=== PATIENT | male | born 1970 | race Caucasian/White ===

== ENCOUNTER 2017-02-07 20:27 | Emergency (ER) | payer OTHER ==
[~2017-02-07] VITALS: Ht 182.9 cm; Wt 149.7 kg
[~2017-02-07 20:27] MED LIST: AMOXIL500 MG PO; BACTRIM DS 8001 TAB PO; LASIX PO; PERCOCET 325 MG1 TA2 PO; PERCOCET 5-3251 EACH PO; PREDNISONE 20MG20 MG PO; Symbicort INH; VENTOLIN H0.09 MG/Ac INH; ZESTRIL10 M1 PO; ZITHROMAX Z-PA250 M1 PO; [UNRECOGNIZED DRUG - CODE] SC
--- NOTE | 2017-02-07 21:01 | ED GI/GU/ABDOMINAL COMPLAINT ---
History of Present Illness General Chief Complaint: Abdominal Pain/Flank Pain Stated Complaint: ABD PAIN Source: patient, old records Exam Limitations: no limitations Vital Signs & Intake/Output Vital Signs & Intake/Output Vital Signs Date Time Temp Pulse Resp B/P Pulse O2 O2 Flow FiO2 Ox Delivery Rate 02/07 2305 98.0 80 18 138/68 93 Room Air 02/07 2100 Room Air 02/07 2030 97.0 89 18 152/88 95 Room Air Allergies Coded Allergies: NO KNOWN ALLERGIES (02/12/16) Reconcile Medications Ciprofloxacin HCl 500 MG TABLET 1 TAB PO BID ANTIBIOTIC (Reported) Glipizide (Glipizide ER) 10 MG TAB.ER.24 1 TAB PO DAILY DM (Reported) Insulin NPL/Insulin Lispro (Humalog Mix 75-25 Vial) 100 UNIT/ML (75-25) VIAL 70 UNIT SC BID DM (Reported) Lisinopril (Zestril) 10 MG TABLET 1 TAB PO DAILY HTN Oxycodone HCl/Acetaminophen (Oxycodone-Acetaminophen 10-325) 10 MG-325 MG TABLET 1 TAB PO PRN PAIN (Reported) Oxycodone HCl/Acetaminophen (Percocet 5-325 MG Tablet) 5 MG-325 MG TABLET 1-2 TAB PO Q6P PRN PAIN Triage Note: PT TO TRIAGE WITH C/O R SIDED ABD PAIN 5/10. PT WAS DIAGNOSED WITH DIVERTICULITIS ON 02/04 AND WAS ON CIPRO SINCE. +NAUSEA/-VOMITING/-DIARRHEA. VSS. Triage Nurses Notes Reviewed? yes HPI: Patient presents with sharp stabbing right upper quadrant pain that radiates through to his back that started approximately 1 week ago. Patient was seen by his primary care physician and was told that he has diverticulitis and was prescribed Cipro. Patient has been taking the antibiotics without any relief. The pain is constant. There is no aggravating or mitigating factors. The pain is 8 out of 10. There is no nausea or vomiting. There are no fevers or chills. Past History Travel History Traveled to [place] past 21 day No Medical History Any Pertinent Medical History? see below for history EENT: TONSILS REMOVED - PEDIATR Cardiovascular: hypertension Respiratory: asthma, bronchitis, pneumonia Gastrointestinal: diverticulitis Renal: nephrolithiasis Musculoskeletal: FRACTURES (FINGERS) Endocrine: diabetes Other Medical Hx: Edema History of MRSA: No History of VRE: No History of CDIFF: No Surgical History Surgical History: non-contributory Psychosocial History Who do you live with Family Services at Home None What is your primary language Luxembourgish Tobacco Use: Current Daily Use Daily Tobacco Use Amount/Type: => 5 Cigarettes daily ETOH Use: occasional use Illicit Drug Use: denies illicit drug use Family History Family History, If Any: FATHER FH: diabetes mellitus MOTHER Hx Contributory? No Review of Systems Review of Systems Constitutional: Reports: no symptoms. EENTM: Reports: no symptoms. Respiratory: Reports: no symptoms. Cardiovascular: Reports: no symptoms. GI: Reports: see HPI, abdominal pain. Genitourinary: Reports: no symptoms. Musculoskeletal: Reports: no symptoms. Skin: Reports: no symptoms. Neurological/Psychological: Reports: no symptoms. Hematologic/Endocrine: Reports: no symptoms. Immunologic/Allergic: Reports: no symptoms. All Other Systems: Reviewed and Negative Physical Exam Physical Exam General Appearance: well developed/nourished, alert, awake, moderate distress Head: atraumatic, normal appearance Eyes: Bilateral: PERRL, EOMI, other (ANICTERIC). Ears, Nose, Throat, Mouth: hearing grossly normal, moist mucous membrane Neck: normal inspection, supple, full range of motion Respiratory: normal breath sounds, chest non-tender, no respiratory distress, lungs clear Cardiovascular: regular rate/rhythm, normal peripheral pulses Gastrointestinal: normal bowel sounds, soft, no organomegaly, tenderness, mass ( RUQ) Back: normal inspection, normal range of motion, NO CVA TENDERNESS Extremities: normal range of motion Neurologic/Psych: no motor/sensory deficits, awake, alert, oriented x 3, normal gait, normal mood/affect Skin: intact, normal color, warm/dry Core Measures ACS in differential dx? No Severe Sepsis Present: No Septic Shock Present: No Progress Differential Diagnosis: biliary colic, cholecystitis, diverticulitis, gastritis, hepatitis, ischemic bowel, inflamm bowel dis, pancreatitis Plan of Care: Orders Procedure Date/time Status URINALYSIS 02/07 2100 Complete LIPASE 02/07 2100 Complete COMPREHENSIVE METABOLIC PANEL 02/07 2100 Complete CBC WITHOUT DIFFERENTIAL 02/07 2100 Complete AMYLASE 02/07 2100 Complete Laboratory Tests 02/07/179: Urinalysis LIGHT H, Urine Color YEL, Urine Clarity CLDY H, Urine pH 6.0, Ur Specific [place] 1.025, Urine Protein 100 H, Urine Ketones NEG, Urine Nitrite NEG, Urine Bilirubin NEG, Urine Urobilinogen 1.0, Ur Leukocyte Esterase NEG, Ur Microscopic SEDIMENT EXAMINED, Urine RBC 1-3, Urine WBC RARE, Ur Epithelial Cells RARE, Urine Bacteria RARE H, Urine Mucus FEW, Urine Hemoglobin SMALL H, Urine Glucose >=1000 H 02/07/172118: Anion Gap 10, Estimated GFR > 60, BUN/Creatinine Ratio 20.0, Glucose 325 H, Calcium 9.2, Total Bilirubin 1.3, AST 81 H, ALT 175 H, Alkaline Phosphatase 215 H, Total Protein 7.0, Albumin 3.8, Globulin 3.2, Albumin/Globulin Ratio 1.2 , Amylase 159 H, Lipase 2578 H, CBC w Diff NO MAN DIFF REQ, RBC 5.41, MCV 86.0 , MCH 28.2, RDW 14.2, MPV 7.8, Gran % 78.7 H, Lymphocytes % 12.9 L, Monocytes % 5.5, Eosinophils % 2.6, Basophils % 0.3, Absolute Granulocytes 9.5 H, Absolute Lymphocytes 1.6, Absolute Monocytes 0.7 H, Absolute Eosinophils 0.3, Absolute Basophils 0, PUBS MCHC 32.7 L Diagnostic Imaging: Viewed by Me: CT Scan. Discussed w/RAD: CT Scan. Radiology Impression: PATIENT: NETO MERCEDES PRESENT AGE: 47 PATIENT ACCOUNT NO: [id number] : 69 LOCATION: [facility] ORDERING PHYSICIAN: RADHA FAJARDO MD SERVICE DATE: 02/07/17 EXAM TYPE: CAT - CT ABD & PELVIS W IV CONTRAST EXAMINATION: CT ABDOMEN AND PELVIS WITH CONTRAST CLINICAL INFORMATION: 47-year-old male patient with right upper quadrant pain. COMPARISON: CT of the abdomen and pelvis on 08/08/2013. TECHNIQUE : Multidetector volumetric imaging was performed of the abdomen and pelvis before and after the IV administration of 95 mL of Optiray 320 intravenous contrast. Sagittal and coronal reformatted images were obtained on the technologist's workstation. DLP: 1459 mGy-cm FINDINGS: Sales Receptionist film is noncontributory. LUNG BASES: The visualized lung bases are unremarkable. LIVER, GALLBLADDER, AND BILIARY TREE: The liver is normal in size, shape, and attenuation. No focal hepatic lesion or biliary ductal dilatation is present. The gallbladder is unremarkable with no evidence of radiopaque gallstones, gallbladder wall thickening, or obvious pericholecystic inflammatory changes. PANCREAS: Unremarkable. SPLEEN: Unremarkable. ADRENAL GLANDS: Unremarkable. KIDNEYS AND URETERS: The left kidney shows cortical atrophy and overall is smaller than the right kidney. Neither kidney shows evidence of significant hydronephrosis. There is perinephric stranding left greater than right. Two punctate, showing calculi are seen in the lower pole of the left kidney. BLADDER : The bladder is only partially filled. There does appear to be some mild wall thickening of the bladder. GASTROINTESTINAL TRACT: The small and large bowel are unremarkable. The appendix is unremarkable. ABDOMINAL WALL: Is small fat- containing umbilical hernia is present. Series 601, image 91. LYMPH NODES: Normal. VASCULAR: Unremarkable. PELVIC VISCERA: Unremarkable. OSSEOUS STRUCTURES : The 12th ribs are hypoplastic. There is an unusual configuration at L5-S1 with near complete anterolisthesis of L5 and bony bridging to S1 IMPRESSION: 1. No indication of acute cholecystitis. 2. Mild cortical atrophy of the left kidney with 2 punctate nonobstructing stones. 3. Unusual appearance to the lumbosacral junction with appears to be severe anterolisthesis and bony bridging of L5-S1. This is a chronic finding. DICTATED BY: AUGUSTO RDZ MD DATE/TIME DICTATED: 02/07/172225 STRAIGHTENER GUN PARTS:GENEVIEVE DATE/TIME TRANSCRIBED:02/07/172225 CONFIDENTIAL, DO NOT COPY WITHOUT APPROPRIATE AUTHORIZATION. <Electronically signed in Other Vendor System> SIGNED BY: AUGUSTO RDZ MD 02/07/17 2846 Initial ED EKG: none Departure Departure Disposition: HOME OR SELF CARE Condition: Stable Clinical Impression Primary Impression: Upper abdominal pain, unspecified Secondary Impressions: Elevated LFTs Referrals: NEFTALI BEDOLLA,VIRY Shepard (PCP/Family) Additional Instructions: HAVE ULTRASOUND TOMORROW RETURN IF SYMPTOMS WORSEN OR FOR ANY CONCERNS Departure Forms: Customer Survey General Discharge Information Prescriptions: Current Visit Scripts Oxycodone HCl/Acetaminophen (Percocet 5-325 MG Tablet) 1-2 TAB PO Q6P PRN PAIN #20 TAB
[2017-02-07 21:48] LABS: ABSOLUTE BASOPHIL COUNT 0 /CUMM (0.0-0.2); ABSOLUTE EOSINOPHIL COUNT 0.3 /CUMM (0.0-0.7); ABSOLUTE GRANULOCYTE CT 9.5 /CUMM (1.4-6.5); ABSOLUTE LYMPH COUNT 1.6 /CUMM (1.2-3.4); ABSOLUTE MONOCYTE COUNT 0.7 /CUMM (0.10-0.60); BASOPHIL % 0.3 % (0.0-2.0); EOSINOPHIL % 2.6 % (0-5); GRANULOCYTE % 78.7 % (42.2-75.2); HEMATOCRIT 46.5 % (42-52); MEAN CORPUSCULAR HGB 28.2 PG (27.0-31.0); MEAN CORPUSCULAR HGB CONC 32.7 G/DL (33.0-37.0); MEAN PLATELET VOLUME 7.8 FL (7.4-10.4); PLATELET COUNT 233 /CUMM (130-400); RBC DISTRIBUTION WIDTH 14.2 % (11.5-14.5); RED BLOOD CELL CT 5.41 /CUMM (4.70-6.10); WHITE BLOOD CELL COUNT 12.1 /CUMM (4.8-10.8)
[2017-02-07] MEDS ORDERED: GLIPIZIDE ER10 M1 PO (21:51)
[2017-02-07] MEDS ORDERED: CIPROFLOXACIN500 M2 PO (21:51)
[2017-02-07] MEDS ORDERED: OXYCODONE-ACET1 EAC1 PO (21:53)
[2017-02-07] MEDS ORDERED: HUMALOG MI100 UNIT/1 SC (21:54)
--- NOTE | 2017-02-07 22:47 | CT SCAN REPORT ---
EXAMINATION: CT ABDOMEN AND PELVIS WITH CONTRAST CLINICAL INFORMATION: 47-year-old male patient with right upper quadrant pain. COMPARISON: CT of the abdomen and pelvis on 08/08/2013. TECHNIQUE: Multidetector volumetric imaging was performed of the abdomen and pelvis before and after the IV administration of 95 mL of Optiray 320 intravenous contrast. Sagittal and coronal reformatted images were obtained on the technologist's workstation. DLP: 1459 mGy-cm FINDINGS: Gray Tender film is noncontributory. LUNG BASES: The visualized lung bases are unremarkable. LIVER, GALLBLADDER, AND BILIARY TREE: The liver is normal in size, shape, and attenuation. No focal hepatic lesion or biliary ductal dilatation is present. The gallbladder is unremarkable with no evidence of radiopaque gallstones, gallbladder wall thickening, or obvious pericholecystic inflammatory changes. PANCREAS: Unremarkable. SPLEEN: Unremarkable. ADRENAL GLANDS: Unremarkable. KIDNEYS AND URETERS: The left kidney shows cortical atrophy and overall is smaller than the right kidney. Neither kidney shows evidence of significant hydronephrosis. There is perinephric stranding left greater than right. Two punctate, showing calculi are seen in the lower pole of the left kidney. BLADDER: The bladder is only partially filled. There does appear to be some mild wall thickening of the bladder. GASTROINTESTINAL TRACT: The small and large bowel are unremarkable. The appendix is unremarkable. ABDOMINAL WALL: Is small fat-containing umbilical hernia is present. Series 601, image 91. LYMPH NODES: Normal. VASCULAR: Unremarkable. PELVIC VISCERA: Unremarkable. OSSEOUS STRUCTURES: The 12th ribs are hypoplastic. There is an unusual configuration at L5-S1 with near complete anterolisthesis of L5 and bony bridging to S1 IMPRESSION: 1. No indication of acute cholecystitis. 2. Mild cortical atrophy of the left kidney with 2 punctate nonobstructing stones. 3. Unusual appearance to the lumbosacral junction with appears to be severe anterolisthesis and bony bridging of L5-S1. This is a chronic finding.
[2017-02-07] MEDS ORDERED: PERCOCET 5-3251 EACH PO (23:04)
[2017-02-07 23:05] VITALS: BP 138/68
== END 2017-02-07 23:08 ==
LOC: ERH 20:27
PROVIDERS: Emergency Medicine
DX: R10.11 Right upper quadrant pain (principal); R79.89 Other specified abnormal findings of blood chemistry
CPT/HCPCS: 74177; 81001; 96361; 96374; 96375

== ENCOUNTER → 2017-12-15 | Day surgery (SDC) | payer OTHER ==
[~2017-12-15] VITALS: Ht 182.9 cm; Wt 145.1 kg
[~2017-12-15] MED LIST changes: +CIPROFLOXACIN500 M2 PO; +GLIPIZIDE ER10 M1 PO; +HUMALOG MI100 UNIT/1 SC; +OXYCODONE-ACET1 EAC1 PO
--- NOTE | 2017-12-15 15:41 | Operative Report ---
Operative/Inv Procedure Report Surgery Date: 12/15/17 Name of Procedure: Right knee arthroscopy, partial medial meniscectomy, partial lateral meniscectomy, loose body removal, chondroplasty Pre-Operative Diagnosis: Right knee medial meniscus tear Post-Operative Diagnosis: Right knee medial meniscus tear plus early degenerative joint disease Estimated Blood Loss: scant Surgeon/Marketing Content Coordinator: Aditya Junior MD Anesthesia: laryngeal mask airway Complications: None Condition: Stable to PACU Operative Indication: This is a 47-year-old male who injured his right knee stepping off a balance. MRI showed meniscal tearing. Risks and benefits of the procedure were discussed with the patient at length. Risks include but are not limited to nerve damage, muscle damage, infection, blood loss, blood clots, pulmonary embolus, and even . The patient agreed to the above risks and elected to proceed with surgery. Operative/Procedure Note Note: The patient was placed supine on the operating room table. A tourniquet was applied. The lower extremity prepped and draped in normal sterile fashion. A timeout was performed before the incision. The site marking was visualized before incision. After the leg was prepped and draped, an Esmarch was used to exsanguinate the extremity. The tourniquet was inflated. A standard inferolateral portal was established with an 11 blade. The camera was inserted. A medial portal was established with a spinal needle and an 11 blade. The diagnostic arthroscopy was then performed which showed the above findings. A straight biter was used to debride the posterior horn of the medial meniscus back to a stable rim of cartilage. A shaver was then used to complete the debridement. The shaver was then used to perform a chondroplasty of the medial femoral condyle. A loose body was noted in the lateral compartment just anterior to the posterior horn of the lateral meniscus. This was retrieved with a grasper. The lateral compartment was entered and a shaver was used to debride degenerative tearing of the free edge of the posterior horn the lateral meniscus. The shaver was then used to perform a chondroplasty on the undersurface of the patella as well as trochlea. The knee was copiously irrigated. The portal sites were closed with 3-0 nylon suture in a simple interrupted fashion. The knee was injected with 10 mL of 0.25% Marcaine with epinephrine. A dry sterile dressing was applied and the patient was transferred to PACU in stable condition. Findings: Degenerative tear of the posterior horn the medial meniscus. Large area of grade 4 chondral defect over the medial femoral condyle. Medial tibial plateau with grade 1 chondral softening. ACL with mucinous stimulation. PCL intact. Lateral meniscus with degenerative fraying of the posterior horn. Lateral compartment articular cartilage with grade 1 chondral changes of the femoral condyle and tibial plateau. Grade 3 and 4 chondral changes of the trochlea. Grade 3 chondral changes on the undersurface of the patella.
== END ==
LOC: STS 02:17
DX: S83.231A Complex tear of medial meniscus, current injury, right knee, initial encounter (principal); S83.281A Other tear of lateral meniscus, current injury, right knee, initial encounter; X58.XXXA Exposure to other specified factors, initial encounter; E11.9 Type 2 diabetes mellitus without complications; Z79.4 Long term (current) use of insulin; I73.9 Peripheral vascular disease, unspecified; I10 Essential (primary) hypertension; G47.33 Obstructive sleep apnea (adult) (pediatric); F17.210 Nicotine dependence, cigarettes, uncomplicated; Z68.41 Body mass index [BMI] 40.0-44.9, adult
CPT/HCPCS: J0131; J0690; J2250

== ENCOUNTER 2018-03-09 22:26 | Inpatient (IN) | payer OTHER ==
[~2018-03-09] VITALS: Ht 185.4 cm; Wt 155.2 kg
--- NOTE | 2018-03-09 22:45 | ED AMS/SEIZURE/WEAK/DIZZY ---
History of Present Illness General Chief Complaint: Neck/Upper Back Pain/Injury Stated Complaint: SHIVERING, +N/V Source: patient Exam Limitations: no limitations Vital Signs & Intake/Output Vital Signs & Intake/Output Vital Signs Date Time Temp Pulse Resp B/P B/P Pulse O2 O2 Flow FiO2 Mean Ox Delivery Rate 03/10 0351 99.0 101 20 128/70 94 Nasal 2.0L Cannula 03/10 0231 98.7 110 24 114/76 92 Nasal 2.0L Cannula 03/09 2316 93 Room Air 03/09 2232 101.2 122 22 191/126 98 Room Air ED Intake and Output 03/10 0000 03/09 1200 Intake Total 1000 Output Total Balance 1000 Intake, IV 1000 Allergies Coded Allergies: NO KNOWN ALLERGIES (02/12/16) Reconcile Medications Furosemide 40 MG TABLET 1 TAB PO BID DIURETIC (Reported) Glipizide (Glipizide ER) 10 MG TAB.ER.24 1 TAB PO DAILY DM (Reported) Insulin NPL/Insulin Lispro (Humalog Mix 75-25 Vial) 100 UNIT/ML (75-25) VIAL 70 UNIT SC BID DM (Reported) Lisinopril (Zestril) 10 MG TABLET 1 TAB PO DAILY HTN Oxycodone HCl/Acetaminophen (Oxycodone-Acetaminophen 10-325) 10 MG-325 MG TABLET 1 TAB PO AD PRN PAIN (Reported) Potassium Chloride 20 MEQ TAB.ER.PRT 1 TAB PO BID SUPPLEMENT (Reported) Triage Note: PT BIBA TO TRIAGE S/P STARTING LASIX YESTERDAY 80MG FOR PEDAL EDEMA AND THEN TONIGHT DEVELOPED ACUTE ONSET SHIVERING, N/V. PT HYPERTENSIVE IN TRIAGE (REPORTS DID NOT TAKE MEDICATION TODAY) 191/126 AND FEBRILE 101.2. MD ABBASI IN TRIAGE TO AL. Triage Nurses Notes Reviewed? yes Onset: Gradual Duration: day(s): Timing: recent history Injury Environment: work Severity: moderate, severe Modifying Factors: Improves With: rest. Associated Symptoms: cough, orthopnea, rigors HPI: 48 yo gentleman in prior good health presents with chills, body aches, shivering, started this evening. He notes that he started taking lasix yesterday and took his full complement today (am and pm). He notes that tonight he had a fever, had worse dyspnea, chills, cough. He notes over the past several days, he has had worsening orthopnea and swelling of his lower extremities. He vomited once, but is not presently nauseous. Per his colleagues, "All of a sudden he started shaking... and then he got real pale." He has no dysuria, diarrhea, dizziness. Past History Travel History Traveled to [place] past 21 day No Medical History Any Pertinent Medical History? see below for history Neurological: NONE EENT: TONSILS REMOVED - PEDIATR Cardiovascular: hypertension Respiratory: asthma, bronchitis, pneumonia Gastrointestinal: diverticulitis Hepatic: NONE Renal: nephrolithiasis Musculoskeletal: FRACTURES (FINGERS) Psychiatric: NONE Endocrine: diabetes Blood Disorders: NONE Cancer(s): NONE Other Medical Hx: Edema History of MRSA: No History of VRE: No History of CDIFF: No Surgical History Surgical History: non-contributory Psychosocial History Who do you live with Family Services at Home None What is your primary language Macedonian Tobacco Use: Never used Family History Family History, If Any: FATHER FH: diabetes mellitus MOTHER Hx Contributory? No Review of Systems Review of Systems Constitutional: Reports: no symptoms. EENTM: Reports: no symptoms. Respiratory: Reports: no symptoms. Cardiovascular: Reports: no symptoms. GI: Reports: no symptoms. Genitourinary: Reports: no symptoms. Musculoskeletal: Reports: no symptoms. Skin: Reports: no symptoms. Neurological/Psychological: Reports: no symptoms. Hematologic/Endocrine: Reports: no symptoms. Immunologic/Allergic: Reports: no symptoms. All Other Systems: Reviewed and Negative Physical Exam Physical Exam General Appearance: well developed/nourished, moderate distress Head: atraumatic, normal appearance Eyes: Bilateral: normal appearance. Ears, Nose, Throat: normal pharynx, normal ENT inspection Neck: normal inspection, supple, full range of motion Respiratory: diminished breath sounds at bases Cardiovascular: regular rate/rhythm Gastrointestinal: normal bowel sounds, soft, non-tender, no organomegaly Back: normal inspection, normal range of motion Extremities: 4+ pitting edema, symmetrical w/ venous stasis changes Neurologic/Psych: no motor/sensory deficits, awake, alert, oriented x 3 Skin: intact, normal color, warm/dry Core Measures ACS in differential dx? No CVA/TIA Diagnosis No Sepsis Present: No Sepsis Focused Exam Completed? No Progress Differential Diagnosis: pneumonia vs chf vs other. Plan of Care: Orders Procedure Date/time Status TROPONIN LEVEL 03/11 0600 Active EKG 03/11 0600 Active Consistent Carbohydrate 3 03/10 B Active CBC WITHOUT DIFFERENTIAL 03/10 0600 Active BASIC ELECTROLYTES PLUS BUN&CR 03/10 0600 Active ECHOCARDIOGRAM 03/10 0404 Active STREP PNEUMO URINARY ANTIGEN 03/10 0401 Active LEGIONELLA URINARY ANTIGEN 03/10 0401 Active Saline Lock 03/10 0355 Active Pathway - chart 03/10 0355 Active House Staff 03/10 0355 Active Code Status 03/10 0355 Active Weight 03/10 0351 Active Vital Signs 03/10 0351 Active Teach/Educate 03/10 0351 Active Pain Treatment and Response 03/10 0351 Active Nutritional Intake, Monitor 03/10 0351 Active Isolation 03/10 0351 Active Intake & Output 03/10 0351 Active Patient Care Conference 03/10 0351 Active Activity/Ambulation 03/10 0351 Active Patient Data 03/10 0149 Active Saline Lock 03/10 0118 Active Misc Message 03/10 0118 Active ED Holding Orders 03/10 0118 Active Admit to inpatient 03/10 0118 Active Vital Signs 03/10 0118 Active Code Status 03/10 0118 Complete URINALYSIS 03/10 0117 Complete Add-on Test (ER Only) 03/10 0102 Active RAPID VIRAL INFLUENZA A 03/10 0050 Complete Lab Add-on Test 03/10 UNK Active VTE Mechanical Prophylaxis 03/10 UNK Active Vital Signs 03/10 UNK Active EKG 03/09 2355 Active BLOOD CULTURE 03/09 2335 Active BLOOD CULTURE 03/09 2329 Active Intake & Output 03/09 2318 Active B-TYPE NATRIURETIC PEP (BNP) 03/09 2311 Complete TROPONIN LEVEL 03/09 2244 Complete LIPASE 03/09 2244 Complete HEPATIC FUNCTION PANEL 03/09 2244 Complete D-DIMER 03/09 2244 Complete CBC WITHOUT DIFFERENTIAL 03/09 2244 Complete BASIC METABOLIC PANEL 03/09 2244 Complete AMYLASE 03/09 224 Complete EKG 03/09 2229 Active Current Medications Sig/Sarabjit Start time Last Medication Dose Stop Time Status Admin Azithromycin 500 MG DAILY 03/10 0900 UNVr (Zithromax) Sodium Chloride 250 ML (Normal Saline 0.9%) Insulin Detemir 70 UNITS BID 03/10 0900 UNVr (Levemir) Insulin Aspart 0 TIDAC 03/10 0800 UNVr (NovoLOG) Acetaminophen 650 MG Q6 03/10 0600 UNVr (Tylenol) Heparin Sodium 5,000 UNIT Q8 03/10 06 UNVr (Porcine) Acetaminophen 1,000 MG Q6P PRN 03/10 400 UNVr (Ofirmev) Laboratory Tests 03/10/18 0330: Urine Color YEL, Urine Clarity HAZY H, Urine pH 6.0, Ur Specific [place] 1.010, Urine Protein 30 H, Urine Ketones NEG, Urine Nitrite NEG, Urine Bilirubin NEG, Urine Urobilinogen 0.2, Ur Leukocyte Esterase SMALL H, Ur Microscopic SEDIMENT EXAMINED, Urine RBC 5-10 H, Urine WBC 10-15 H, Ur Epithelial Cells RARE, Urine Crystals RARE UR AC, Urine Bacteria RARE H, Urine Hemoglobin SMALL H, Urine Glucose 100 H 03/09/18 2311: Anion Gap 17 H, Estimated GFR > 60, BUN/Creatinine Ratio 21.0, Glucose 330 H, Calcium 9.4, Total Bilirubin 1.5 H, Direct Bilirubin 0.4, AST 17, ALT 31, Alkaline Phosphatase 71, Troponin I 0.02, Uey-O-Levetdxkkcy Pept 146 H, Total Protein 7.5, Albumin 4.3, Amylase 39, Lipase 131, D-Dimer High Sensitivty 253 H , CBC w Diff NO MAN DIFF REQ, RBC 5.09, MCV 87.1, MCH 29.2, MCHC 33.5, RDW 14.3, MPV 7.1 L, Gran % 90.3 H, Lymphocytes % 5.8 L, Monocytes % 2.4, Eosinophils % 1.5, Basophils % 0, Absolute Granulocytes 14.3 H, Absolute Lymphocytes 0.9 L, Absolute Monocytes 0.4, Absolute Eosinophils 0.2, Absolute Basophils 0 Microbiology 03/10 401 URINE ROUT: Legionella Antigen - ORD 03/10 401 URINE ROUT: Streptococcus pneumoniae Antigen (M - ORD 03/10 0250 NASOPHARYN: Influenza Virus A & B Rapid Smear - COMP 03/094 BLOOD: Blood Culture - RECD 03/09 2332 BLOOD: Blood Culture - RECD Diagnostic Imaging: Viewed by Me: Radiology Read. Discussed w/RAD: Radiology Read. CXR Impression: PATIENT: NETO MERCEDES PRESENT AGE: 48 PATIENT ACCOUNT NO: [id number] : 69 LOCATION: [facility] ORDERING PHYSICIAN: Candido Abbasi MD SERVICE DATE: 03/09/18 EXAM TYPE: RAD - XRY-PORTABLE CHEST XRAY EXAMINATION: XR PORTABLE CHEST CLINICAL INFORMATION: Dyspnea COMPARISON: 02/11/2016 TECHNIQUE: Portable frontal view of the chest was obtained. FINDINGS: Lung volumes are symmetric. No focal consolidation is seen. There is mild diffuse prominence of the interstitium. No evidence of pneumothorax or significant pleural effusion. The cardiomediastinal contour is unremarkable. No acute osseous findings are seen. IMPRESSION: Mild diffuse interstitial prominence, which could reflect mild interstitial edema. No focal consolidation identified. DICTATED BY: Slade Mcgowan MD DATE/TIME DICTATED:03/09/182331 MECHANICAL TEST TECHNICIAN:GENEVIEVE DATE/TIME TRANSCRIBED:2331 CONFIDENTIAL, DO NOT COPY WITHOUT APPROPRIATE AUTHORIZATION. < Electronically signed in Other Vendor System> SIGNED BY: Slade Mcgowan MD 03/09/182337 Initial ED EKG: sinus tach, rbbb. no acute changes. Departure Departure Disposition: HOME OR SELF CARE Condition: Stable Clinical Impression Primary Impression: CHF (congestive heart failure) Secondary Impressions: Pneumonia, Sepsis Referrals: Andie BEDOLLA,Bello Shepard (PCP/Family) Departure Forms: Customer Survey General Discharge Information Admission Note Spoke With: Cam Tillman MD Documentation of Exam: Documentation of any treatments & extenuating circumstances including Concerns Regarding Discharge (functional status, medication knowledge or non-compliance, living conditions, etc.) that warrant an admission rather than observation: Pt with new onset chf as well as clinical pneumonia (fever, wbc, dyspnea).. pt merits iv abx, iv lasix, close evaluation, serial trops/ekg, cards eval. call placed to cardiology. Critical Care Note Critical Care Note Critical Care Time: 30-74 min
[2018-03-09 23:19] LABS: ABSOLUTE BASOPHIL COUNT 0 /CUMM (0.0-0.2); ABSOLUTE EOSINOPHIL COUNT 0.2 /CUMM (0.0-0.7); ABSOLUTE GRANULOCYTE CT 14.3 /CUMM (1.4-6.5); ABSOLUTE LYMPH COUNT 0.9 /CUMM (1.2-3.4); ABSOLUTE MONOCYTE COUNT 0.4 /CUMM (0.10-0.60); BASOPHIL % 0 % (0.0-2.0); EOSINOPHIL % 1.5 % (0-5); GRANULOCYTE % 90.3 % (42.2-75.2); HEMATOCRIT 44.3 % (42-52); MEAN CORPUSCULAR HGB 29.2 PG (27.0-31.0); MEAN CORPUSCULAR HGB CONC 33.5 G/DL (33.0-37.0); MEAN CORPUSCULAR VOLUME 87.1 FL (80.0-94.0); MEAN PLATELET VOLUME 7.1 FL (7.4-10.4); PLATELET COUNT 236 /CUMM (130-400); RBC DISTRIBUTION WIDTH 14.3 % (11.5-14.5); RED BLOOD CELL CT 5.09 /CUMM (4.70-6.10); WHITE BLOOD CELL COUNT 15.8 /CUMM (4.8-10.8)
[2018-03-09] MEDS ORDERED: FUROSEMIDE40 M1 PO (23:28)
[2018-03-09] MEDS ORDERED: POTASSIUM CHLO20 ME2 PO (23:28)
[2018-03-09] MEDS ORDERED: OXYCODONE-ACET1 EAC1 PO (23:29)
--- NOTE | 2018-03-09 23:38 | RADIOLOGY REPORT ---
EXAMINATION: XR PORTABLE CHEST CLINICAL INFORMATION: Dyspnea COMPARISON: 02/11/2016 TECHNIQUE: Portable frontal view of the chest was obtained. FINDINGS: Lung volumes are symmetric. No focal consolidation is seen. There is mild diffuse prominence of the interstitium. No evidence of pneumothorax or significant pleural effusion. The cardiomediastinal contour is unremarkable. No acute osseous findings are seen. IMPRESSION: Mild diffuse interstitial prominence, which could reflect mild interstitial edema. No focal consolidation identified.
--- NOTE | 2018-03-10 02:32 | CT SCAN REPORT ---
EXAMINATION: CT ANGIOGRAM OF THE CHEST WITH AND WITHOUT CONTRAST (CT PULMONARY ANGIOGRAM FOR PE) CLINICAL INFORMATION: Dyspnea COMPARISON: Chest CT 05/21/2014 TECHNIQUE: Prior to contrast administration, noncontrast localization images were obtained. Subsequently, multidetector volumetric imaging was performed from the thoracic inlet to below the diaphragms following the administration of 91 mL Optiray 320 intravenous contrast. No contrast reaction reported. Sagittal, coronal, and MIP oblique sagittal reformatted images were obtained on the CT workstation, uploaded to PACS, and reviewed. Total exam dose-length product 601.49 mGy-cm. FINDINGS: QUALITY OF STUDY/CONTRAST BOLUS: Satisfactory PULMONARY ARTERIES: No main pulmonary artery embolus is seen. However, the lobar, segmental, and subsegmental vessels are not adequately assessed due to suboptimal bolus timing, and therefore emboli at these levels cannot be excluded. The main pulmonary artery is prominent, measuring approximately 3.4 cm in diameter, which may indicate pulmonary hypertension. THORACIC AORTA: No aneurysm or dissection. LUNG: The lungs are clear bilaterally without consolidation. No appreciable findings of pulmonary edema. PLEURA: No pleural effusion or pneumothorax. MEDIASTINUM: The visualized thyroid gland is unremarkable. There are subcentimeter mediastinal lymph nodes within the range of normal variation. Cardiac size is within normal limits; no pericardial effusion. No evidence of septal bowing or right heart strain. CHEST WALL/AXILLA: No axillary or internal mammary lymphadenopathy. OSSEOUS STRUCTURES: Multilevel endplate osteophytes are present in the spine. UPPER ABDOMEN: No acute findings identified. No reflux of contrast into the hepatic veins to suggest elevated right heart pressures. IMPRESSION: 1. Limited assessment due to suboptimal bolus timing. While no main pulmonary artery embolus is seen, assessment of the remainder of the vasculature is inadequate, and emboli at these levels cannot be excluded. Further assessment may be performed with a nuclear medicine ventilation perfusion scan, or with reattempted CT angiogram. 2. Prominent main pulmonary artery, which may reflect pulmonary hypertension. VTE: indeterminate
--- NOTE | 2018-03-10 03:36 | History & Physical ---
Ike BEDOLLA,Zaki 03/10/18 0335: General Information and HPI History of Present Illness: Patient is a morbidly obese 48-year-old male with past medical history of diabetes, obstructive sleep apnea (with intermittent use of CPAP), hypertension, asthma, diverticulitis presenting this admission with chief complaint of acute onset shivering and nausea/vomiting. Patient reports that on day of admission at approximately 8 PM he was sitting at work and started shivering uncontrollably. On his way to the hospital patient reports that he had nausea and vomiting. Patient reports fever, sweating, lightheadedness, shortness of breath for the past few days with exertion and at rest. Patient reports he started having increased lower extremity swelling and was placed on Lasix 40 mg twice a day which he reports has helped the swelling however has been feeling lightheaded since starting the medication. Of note patient has a small wound on his left leg which has a small amount of discharge. Patient endorses productive cough with clear sputum. Reports that he was treated for bronchitis 2-3 weeks prior to admission with inhaler and antibiotics. Patient denies any chest pain, palpitations, dysuria, hematuria, abdominal pain, diarrhea, constipation. Patient reports smoking 10 cigarettes per day for the past 30 years, denies illicit drug use, drinks alcohol once a month. Patient lives with his and kids and has a pet cat and dog. Patient denies any sick contacts, recent travel outside of [place], bug bites or tick bites. Allergies/Medications Allergies: Coded Allergies: NO KNOWN ALLERGIES (02/12/16) Home Med list Furosemide 40 MG TABLET 1 TAB PO BID DIURETIC (Reported) Glipizide (Glipizide ER) 10 MG TAB.ER.24 1 TAB PO DAILY DM (Reported) Insulin NPL/Insulin Lispro (Humalog Mix 75-25 Vial) 100 UNIT/ML (75-25) VIAL 70 UNIT SC BID DM (Reported) Lisinopril (Zestril) 10 MG TABLET 1 TAB PO DAILY HTN Oxycodone HCl/Acetaminophen (Oxycodone-Acetaminophen 10-325) 10 MG-325 MG TABLET 1 TAB PO AD PRN PAIN (Reported) Potassium Chloride 20 MEQ TAB.ER.PRT 1 TAB PO BID SUPPLEMENT (Reported) Past History Travel History Traveled to [place] past 21 day No Medical History Neurological: NONE EENT: TONSILS REMOVED - PEDIATR Cardiovascular: hypertension Respiratory: asthma, bronchitis, pneumonia Gastrointestinal: diverticulitis Hepatic: NONE Renal: nephrolithiasis Musculoskeletal: FRACTURES (FINGERS) Psychiatric: NONE Endocrine: diabetes Blood Disorders: NONE Cancer(s): NONE Other Medical Hx: Edema History of MRSA: No History of VRE: No History of CDIFF: No Surgical History Surgical History: non-contributory Past Family/Social History Family History Relations & Conditions if any FATHER FH: diabetes mellitus MOTHER Psychosocial History Services at Home: None Review of Systems Review of Systems Constitutional: Reports: see HPI. Exam & Diagnostic Data Last 24 Hrs of Vital Signs/I&O Vital Signs Date Time Temp Pulse Resp B/P B/P Pulse O2 O2 Flow FiO2 Mean Ox Delivery Rate 03/10 0858 95 Nasal 2.0L Cannula 03/10 0723 98.8 97 20 126/64 94 Nasal Cannula 03/10 0351 99.0 101 20 128/70 94 Nasal 2.0L Cannula 03/10 0231 98.7 110 24 114/76 92 Nasal 2.0L Cannula 03/09 2316 93 Room Air 03/09 2232 101.2 122 22 191/126 98 Room Air Intake & Output 03/10 1600 03/10 0800 03/10 0000 Intake Total 120 1000 Output Total 300 Balance -180 1000 Intake, IV 1000 Intake, Oral 120 Output, Urine 300 Patient 337 lb Weight Weight Bed scale Measurement Method Physical Exam General Appearance Alert, Oriented X3, Cooperative, No Acute Distress Skin Temp/Moisture Exam: Warm/Dry Sepsis Skin Exam (color): Normal for Ethnicity HEENT Atraumatic, PERRLA, EOMI, Mucous Membr. moist/pink Neck Supple Cardiovascular Regular Rate, Normal S1, Normal S2, No Murmurs Lungs Clear to Auscultation, Normal Air Movement Abdomen Normal Bowel Sounds, Soft, No Tenderness Neurological Normal Speech, Strength at 5/5 X4 Ext, Normal Tone, Sensation Intact, Cranial Nerves 3-12 NL Extremities No Clubbing, No Cyanosis, Normal Pulses, No Tenderness/Swelling, bilateral lower extremity edema, with chronic venous stasis changes, small open wound with small amount of pus, no erythema or tenderness Vascular Normal Pulses, Pulses Symmetrical Last 24 Hrs of Labs/Holl[place]: Laboratory Tests 03/10/18 0805: Lactic Acid 1.4 03/10/18 0510: Lactic Acid 2.6 H 03/10/18 0510: Anion Gap 13, Estimated GFR > 60, BUN/Creatinine Ratio 20.0, CBC w Diff MAN DIFF ORDERED, RBC 4.93, MCV 87.3, MCH 29.2, MCHC 33.5, RDW 14.5, MPV 7.7, Gran % 85.8 H, Lymphocytes % 8.3 L, Monocytes % 5.3, Eosinophils % 0.5, Basophils % 0.1, Absolute Granulocytes 13.5 H, Segmented Neutrophils 78 H, Band Neutrophils 1, Absolute Lymphocytes 1.3, Lymphocytes 13 L, Monocytes 6, Absolute Monocytes 0.8 H, Eosinophils 2, Absolute Eosinophils 0.1, Absolute Basophils 0, Platelet Estimate ADEQUATE, Polychromasia 1+, Poikilocytosis 1+, Stomatocytes 1+, Fld Total RBCs Counted 100 03/10/18 0330: Urine Color YEL, Urine Clarity HAZY H, Urine pH 6.0, Ur Specific [place] 1.010, Urine Protein 30 H, Urine Ketones NEG, Urine Nitrite NEG, Urine Bilirubin NEG, Urine Urobilinogen 0.2, Ur Leukocyte Esterase SMALL H, Ur Microscopic SEDIMENT EXAMINED, Urine RBC 5-10 H, Urine WBC 10-15 H, Ur Epithelial Cells RARE, Urine Crystals RARE UR AC, Urine Bacteria RARE H, Urine Hemoglobin SMALL H, Urine Glucose 100 H 03/09/18 2311: Anion Gap 17 H, Estimated GFR > 60, BUN/Creatinine Ratio 21.0, Glucose 330 H, Hemoglobin A1c 9.4 H, Lactic Acid 3.1 H, Calcium 9.4, Phosphorus 3.2, Magnesium 1.2 L, Total Bilirubin 1.5 H, Direct Bilirubin 0.4, AST 17, ALT 31, Alkaline Phosphatase 71, Troponin I 0.02, Rgm-I-Pgmupctphwl Pept 146 H, Total Protein 7.5, Albumin 4.3, Amylase 39, Lipase 131, TSH 1.600, Free T4 1.23, D- Dimer High Sensitivty 253 H, CBC w Diff NO MAN DIFF REQ, RBC 5.09, MCV 87.1, MCH 29.2, MCHC 33.5, RDW 14.3, MPV 7.1 L, Gran % 90.3 H, Lymphocytes % 5.8 L, Monocytes % 2.4, Eosinophils % 1.5, Basophils % 0, Absolute Granulocytes 14.3 H , Absolute Lymphocytes 0.9 L, Absolute Monocytes 0.4, Absolute Eosinophils 0.2, Absolute Basophils 0 Microbiology 03/10 0330 URINE ROUT: Legionella Antigen - COMP 03/10 033 URINE ROUT: Streptococcus pneumoniae Antigen (M - COMP 03/10 0250 NASOPHARYN: Influenza Virus A & B Rapid Smear - COMP 03/09 2344 BLOOD: Blood Culture - RECD 03/09 2332 BLOOD: Blood Culture - RECD Assessment/Plan Assessment: Patient is a morbidly obese 48-year-old male with past medical history of diabetes, obstructive sleep apnea (with intermittent use of CPAP), hypertension, asthma, diverticulitis presenting this admission with chief complaint of acute onset shivering and nausea/vomiting. Patient will be admitted to telemetry for management of the followin. Sepsis likely secondary to small ulcer on left leg 2. Congestive heart failure 3. Chronic conditions: Diabetes, hypertension, obstructive sleep apnea on CPAP, COPD, current smoker, hyperlipidemia Plan: Admitted to telemetry with continuous monitoring Serial EKG and troponins Cardiology consult with Dr. Pena- patient reports that he has an upcoming appointment with Dr. Pena on March 15 Echo cardiogram Follow-up blood cultures and urine culture Continue to trend vitals and CBC Wound consult in AM Left lower extremity soft tissue ultrasound IV cefazolin 1 g every 8 hours Continue home medications Insulin sliding scale 3 times a day/daily at bedtime Oxygen supplementation as needed TRC/DuoNeb treatments Diet: Consistent carbohydrate diet with salt restriction Code: Full code DVT prophylaxis: Heparin subcutaneous As Ranked By This Provider Problem List: 1. Sepsis 2. CHF (congestive heart failure) Core Measures/Misc (07/31) Acute Coronary Syndrome ACS Diagnosis: No Congestive Heart Failure Congestive Heart Failure Diagnosis Yes Cerebrovascular Accident CVA/TIA Diagnosis: No VTE (View Protocol) VTE Risk Factors Age>40 No Mechanical VTE Prophylaxis d/t N/A MechProphylax Ordered No VTE Pharm Prophylaxis d/t NA PharmProphylax ordered Sepsis (View protocol) Sepsis Present: Yes Ck Lopez 03/10/18 0452: Resident Review Statement Resident Statement: examined this patient, discussed with video editing intern, agreed with video editing intern, reviewed EMR data (avail), discussed with nursing, discussed with case mgmt, reviewed images, amended to note Other Findings: This is a 48-year-old man with medical history of insulin-dependent diabetes mellitus, hypertension, hyperlipidemia obstructive sleep apnea on CPAP, COPD not on home oxygen, status post cholecystectomy. Patient presented to the emergency department with a chief complaint of chills, fever and shivering that started this evening when he was at work. In the Ed the p.t stated that he had nausea and one episode of vomiting which was nonbloody and nonbilious. Patient states that he has been noticing shortness of breath on exertion and even at rest and noticed worsening leg swelling so he was prescribed Lasix yesterday by his PCP, he took around 40 mg tablet 2 times a day and which help with his leg swelling but caused lightheadedness. He was recently treated for bronchitis with the Augmentin antibiotics. Patient also reports very small wound on left leg with some discharge associated with mild cough with white colored sputum production, residual from his recent bronchitis. He denies any chest pain, chest tightness, urinary frequency, burning, back pain, abdominal pain, diarrhea, sick contact. he received 40 mg IV Lasix in the ED, 1 dose of IV ceftriaxone and azithromycin. Physical examination, lab and imaging as above Problem list: - Sepsis secondary to possible wound infection left lower leg - Anion gap lactic acidosis - Obstructive sleep apnea noncompliant with his CPAP that may cause worsening of his underlying pulmonary hypertension - Hypomagnesemia that can be due to lasix - Hyperglycemia noncompliant with his oral antidiabetic med. Plan: - Admit to telemetry - Vitals every shift, daily weight, Is & Os - Serial troponins and ECGs - Obtain echocardiogram in a.m. - Cardiology consult in A.M - Overnight CPAP, TRC and Nebs as needed. - Left leg soft tissue ultrasound - start the p.t on IV cefazolin. - Trend lactic acid. - Wound consultation in a.m. - Obtain Blood cultures, urine culture, urinalysis, strep and Legionella antigen - Diabetic diet, Accu-Chek Insulin sliding scale, levemir BID - Pain pathway - DVT prophylaxis subcutaneous heparin - Full code. Cam Tillman 03/10/18 0641: Attending MD Review Statement Attending Statement Attending MD Statement: examined this patient, discuss w/resident/PA/INDUSTRIAL HYGIENE MANAGER, agreed w/resident/PA/INDUSTRIAL HYGIENE MANAGER, reviewed EMR data (avail), reviewed images, amended to note Attending Assessment/Plan: CC: Fever and chills PMH: DM, HTN, HLD, CHEMA, asthma/COPD Patient was brought in ER for sudden onset fever and chills. Patient was apparently all right until 8 PM when he noticed severe chills, fever, sweating. His friend suggested him to go to ER given his chills and fever. On the way he had nausea and one episode of vomiting which was nonbloody and nonbilious. Patient states that he has been noticing shortness of breath on exertion and even at rest and noticed worsening leg swelling so he was prescribed Lasix yesterday, he took 40 mg tablet 2 times a day and which happened for the leg swelling but caused lightheadedness. He was recently treated for bronchitis with the oral antibiotics. He has very small wound on left leg with some discharge. He denies any chest pain, chest tightness, urinary frequency, burning, back pain , abdominal pain, diarrhea, sick contact. Patient has mild cough with white colored sputum production, residual from his recent bronchitis. Vitals: Temperature 101.2, pulse 122, RR 22, blood pressure 191/126, saturating 98% on 2 L nasal cannula On exam: A O 3, cooperative, morbidly obese, no acute distress, neck supple, JVD cannot be assessed, no lymphadenopathy, mucosa moist, no focal neurological deficit, bilateral lower extremity edema with chronic venous stasis changes and small 0.5 cm performed on left lower extremity with pus discharge without any evidence of surrounding cellulitis CVS: S1-S2, RRR. RS: Clear to auscultate bilaterally. Abdomen: Soft, NT, ND, bowel sounds present. CXR: Mild diffuse interstitial prominence, which could reflect mild interstitial edema. No focal consolidation identified. CTA chest: 1. Limited assessment due to suboptimal bolus timing. While no main pulmonary artery embolus is seen, assessment of the remainder of the vasculature is inadequate, and emboli at these levels cannot be excluded. Further assessment may be performed with a nuclear medicine ventilation perfusion scan, or with reattempted CT angiogram. 2. Prominent main pulmonary artery, which may reflect pulmonary hypertension. Assessment and plan 48-year-old male with above-mentioned past medical history presented in ER for sudden onset of fever, chills, sweating. Patient does not have any cough, expectoration , urinary symptoms, back pain, abdominal pain, diarrhea and he had only one episode of vomiting on the way to ER. He has a small wound on left leg which was draining since last 2 days. On examination superficial skin breakdown with possible pus discharge but no obvious surrounding cellulitis. Deeper pocket of infection could not be ruled out because of the extent of leg edema. He does not have any obvious crackles, JVD difficult to assess but chest x-ray suggestive of pulmonary vascular congestion, it could be secondary to his pulmonary hypertension or he may have new onset heart failure, his blood pressure was remarkably elevated on arrival. He responded to IV Lasix, with symptoms and blood pressure. Even though proBNP is low, patient is obese and it may have low predictive value. We will get cardiology to rule out any new onset heart failure. Patient has history of nephrolithiasis, currently no evidence of CVA tenderness, UA unremarkable and no urinary symptoms but if patient persistent to spike fever consider CT abdomen for nephrolithiasis or pyelonephritis. + Sepsis secondary to possible wound infection left lower leg + Possible new onset heart failure + History of DM, HTN, HLD, CHEMA, COPD - Admit to telemetry - Continuous telemetry monitoring - Serial troponins and ECGs - 2-D echocardiogram in a.m. - Cardiology consult - Overnight CPAP - Left leg soft tissue ultrasound - Blood cultures - IV cefazolin - TRC, sliding scale insulin, continue oral antihypertensives
[2018-03-10 03:51] VITALS: BP 128/70
[2018-03-10 05:53] LABS: ABSOLUTE BASOPHIL COUNT 0 /CUMM (0.0-0.2); ABSOLUTE EOSINOPHIL COUNT 0.1 /CUMM (0.0-0.7); ABSOLUTE GRANULOCYTE CT 13.5 /CUMM (1.4-6.5); ABSOLUTE LYMPH COUNT 1.3 /CUMM (1.2-3.4); ABSOLUTE MONOCYTE COUNT 0.8 /CUMM (0.10-0.60); BASOPHIL % 0.1 % (0.0-2.0); EOSINOPHIL % 0.5 % (0-5); GRANULOCYTE % 85.8 % (42.2-75.2); MEAN CORPUSCULAR HGB 29.2 PG (27.0-31.0); MEAN CORPUSCULAR HGB CONC 33.5 G/DL (33.0-37.0); MEAN CORPUSCULAR VOLUME 87.3 FL (80.0-94.0); MEAN PLATELET VOLUME 7.7 FL (7.4-10.4); PLATELET COUNT 189 /CUMM (130-400); RBC DISTRIBUTION WIDTH 14.5 % (11.5-14.5); RED BLOOD CELL CT 4.93 /CUMM (4.70-6.10); WHITE BLOOD CELL COUNT 15.7 /CUMM (4.8-10.8)
--- NOTE | 2018-03-10 06:42 | Admission Certification ---
Admission Certification Certification Statement - As attending physician, I certify that at the time of - admission, based on clinical presentation, severity of - symptoms, need for further diagnostic testing and - therapeutic interventions, and risk of adverse outcomes - without in-hospital treatment, in my clinical assessment, - this patient requires an acute hospital stay for a minimum - of two nights or longer. I have also considered psychsocial - factors such as support system, advanced age, financial - issues, cognitive issues, and failed out-patient treatments, - past re-admission history, safety of patient, and lack of - compliance as applicable. Specific rationale supporting this admission is: Superficial wound infection
[2018-03-10 07:23] VITALS: BP 126/64
--- NOTE | 2018-03-10 07:37 | Event Note ---
Event Note Event Note: 48 yo M with pmh of DM, CHEMA not compliant on BiPAP, morbid obesity, hypertension , COPD, chronic venous insufficiency status post vein stripping, previous multiple cellulitis and bilateral lower extremity, presented to the emergency department with bilateral leg swelling, shortness of breath, fever (temperature not recorded). About a week ago, he was suffering from bronchitis and took antibiotics for it, name not known. The patient was found to be in sepsis, most likely secondary to his left lower extremity wound, which during the course of the day has improved already with IV antibiotics cefazolin. The edition suspicion of CHF was made due to his clinical presentation, bilateral lower extremity edema, congested breath sounds, and much clinical relief after IV diuretic therapy. Echocardiogram has been ordered, results pending. Cardiology following, will follow their recommendations for further management. Plan to continue IV diuretic therapy for now, awaiting recs. Diet: CC3 DVT ppx: SQ Heparin Code status: Full code
--- NOTE | 2018-03-10 10:04 | ULTRASOUND REPORT ---
EXAMINATION: US SUPERFICIAL IMAGING, EXTREMITY CLINICAL INFORMATION: Left lower extremity abscess COMPARISON: None TECHNIQUE: Real-time technique. FINDINGS: Subcutaneous edema or cellulitis noted in the region of concern. No abnormal or organized fluid collection . No definite evidence of abscess formation. Varicose veins noted in the subcutaneous region. IMPRESSION: 1. Edema/cellulitis subcutaneous tissues tissues. 2. No definite evidence of organized/focal fluid collection or abscess formation.
--- NOTE | 2018-03-10 11:16 | PN- Att Addend ---
Attending Addendum Attending Brief Note 48-year-old male past medical history of CHEMA presented in ER for sudden onset of fever, chills, sweating. He has a small wound on left leg which was draining since last 2 days. Labs and imaging noted. PE with redness/warmth of lower extremity bilateral. Chest x-ray suggestive of pulmonary vascular congestion, it could be secondary to his pulmonary hypertension or he may have new onset heart failure. His blood pressure was remarkably elevated on arrival. Now better. Vitals stable. 1 Sepsis secondary to cellulitis of lower extremity with skin breakdown 2 Possible new onset heart failure 3 History of DM, HTN, HLD, CHEMA, COPD 4. Pulmonary hypertension 5. Possible chronic venous stasis with bilateral lower extremity swelling. Continuous telemetry monitoring, negative Serial troponins, pending ECHO, Cardiology consult, iv lasix, f/u Blood cultures, c/w IV cefazolin, Overnight CPAP for CHEMA. Oxygen supplementation, TRcs, Admission Lab Results I reviewed the following labs: Laboratory Tests 03/10 03/10 03/10 0805 0510 0510 Chemistry Sodium (137 - 145 mmol/L) 138 Potassium (3.5 - 5.1 mmol/L) 4.1 Chloride (98 - 107 mmol/L) 94 L Carbon Dioxide (22 - 30 mmol/L) 31 H Anion Gap (5 - 16) 13 BUN (9 - 20 mg/dL) 22 H Creatinine (0.7 - 1.2 mg/dL) 1.1 Estimated GFR (>60 ml/min) > 60 BUN/Creatinine Ratio (7 - 25 %) 20.0 Lactic Acid (0.7 - 2.1 mmol/L) 1.4 2.6 H Hematology CBC w Diff MAN DIFF ORDERED WBC (4.8 - 10.8 /CUMM) 15.7 H RBC (4.70 - 6.10 /CUMM) 4.93 Hgb (14.0 - 18.0 G/DL) 14.4 Hct (42 - 52 %) 43.0 MCV (80.0 - 94.0 FL) 87.3 MCH (27.0 - 31.0 PG) 29.2 MCHC (33.0 - 37.0 G/DL) 33.5 RDW (11.5 - 14.5 %) 14.5 Plt Count (130 - 400 /CUMM) 189 MPV (7.4 - 10.4 FL) 7.7 Gran % (42.2 - 75.2 %) 85.8 H Lymphocytes % (20.5 - 51.1 %) 8.3 L Monocytes % (1.7 - 9.3 %) 5.3 Eosinophils % (0 - 5 %) 0.5 Basophils % (0.0 - 2.0 %) 0.1 Absolute Granulocytes (1.4 - 6.5 /CUMM) 13.5 H Segmented Neutrophils (42.2 - 75.2 %) 78 H Band Neutrophils (0.0 - 5.0 %) 1 Absolute Lymphocytes (1.2 - 3.4 /CUMM) 1.3 Lymphocytes (20.5 - 51.1 %) 13 L Monocytes (1.7 - 9.3 %) 6 Absolute Monocytes (0.10 - 0.60 /CUMM) 0.8 H Eosinophils (0 - 5.0 %) 2 Absolute Eosinophils (0.0 - 0.7 /CUMM) 0.1 Absolute Basophils (0.0 - 0.2 /CUMM) 0 Platelet Estimate (ADEQUATE) ADEQUATE Polychromasia 1+ Poikilocytosis 1+ Stomatocytes 1+ Other Body Source Fld Total RBCs Counted (%) 100 03/10 03/09 0330 2311 Chemistry Sodium (137 - 145 mmol/L) 140 Potassium (3.5 - 5.1 mmol/L) 4.1 Chloride (98 - 107 mmol/L) 94 L Carbon Dioxide (22 - 30 mmol/L) 29 Anion Gap (5 - 16) 17 H BUN (9 - 20 mg/dL) 21 H Creatinine (0.7 - 1.2 mg/dL) 1.0 Estimated GFR (>60 ml/min) > 60 BUN/Creatinine Ratio (7 - 25 %) 21.0 Glucose (65 - 99 mg/dL) 330 H Hemoglobin A1c (4.2 - 5.8 %) 9.4 H Lactic Acid (0.7 - 2.1 mmol/L) 3.1 H Calcium (8.4 - 10.2 mg/dL) 9.4 Phosphorus (2.5 - 4.5 mg/dL) 3.2 Magnesium (1.6 - 2.3 mg/dL) 1.2 L Total Bilirubin (0.2 - 1.3 mg/dL) 1.5 H Direct Bilirubin (< 0.4 mg/dL) 0.4 AST (17 - 59 U/L) 17 ALT (21 - 72 U/L) 31 Alkaline Phosphatase (< 127 U/L) 71 Troponin I (<0.11 ng/ml) 0.02 [id number] Pept (<125 pg/mL) 146 H Total Protein (6.3 - 8.2 g/dL) 7.5 Albumin (3.5 - 5.0 g/dL) 4.3 Amylase (30 - 110 U/L) 39 Lipase (23 - 300 U/L) 131 TSH (0.270 - 4.200 uIU/mL) 1.600 Free T4 (0.64 - 1.79 ng/dL) 1.23 Coagulation D-Dimer High Sensitivty (0 - 243 ng/ml) 253 H Hematology CBC w Diff NO MAN DIFF REQ WBC (4.8 - 10.8 /CUMM) 15.8 H RBC (4.70 - 6.10 /CUMM) 5.09 Hgb (14.0 - 18.0 G/DL) 14.8 Hct (42 - 52 %) 44.3 MCV (80.0 - 94.0 FL) 87.1 MCH (27.0 - 31.0 PG) 29.2 MCHC (33.0 - 37.0 G/DL) 33.5 RDW (11.5 - 14.5 %) 14.3 Plt Count (130 - 400 /CUMM) 236 MPV (7.4 - 10.4 FL) 7.1 L Gran % (42.2 - 75.2 %) 90.3 H Lymphocytes % (20.5 - 51.1 %) 5.8 L Monocytes % (1.7 - 9.3 %) 2.4 Eosinophils % (0 - 5 %) 1.5 Basophils % (0.0 - 2.0 %) 0 Absolute Granulocytes (1.4 - 6.5 /CUMM) 14.3 H Absolute Lymphocytes (1.2 - 3.4 /CUMM) 0.9 L Absolute Monocytes (0.10 - 0.60 /CUMM) 0.4 Absolute Eosinophils (0.0 - 0.7 /CUMM) 0.2 Absolute Basophils (0.0 - 0.2 /CUMM) 0 Urines Urine Color (YEL,AMB,STR) YEL Urine Clarity (CLEAR) HAZY H Urine pH (5.0 - 8.0) 6.0 Ur Specific [place] (1.001 - 1.035) 1.010 Urine Protein (NEG,<30 MG/DL) 30 H Urine Ketones (NEG) NEG Urine Nitrite (NEG) NEG Urine Bilirubin (NEG) NEG Urine Urobilinogen (0.1 - 1.0 EU/dl) 0.2 Ur Leukocyte Esterase (NEG) SMALL H Ur Microscopic SEDIMENT EXAMINED Urine RBC (0 - 5 /HPF) 5-10 H Urine WBC (0 - 2 /HPF) 10-15 H Ur Epithelial Cells (NONE,FEW) RARE Urine Crystals RARE UR AC Urine Bacteria (NEG/NONE) RARE H Urine Hemoglobin (NEG) SMALL H Urine Glucose (N MG/DL) 100 H Admission Meds I reviewed the following Meds: Current Medications Sig/Sarabjit Start time Last Medication Dose Stop Time Status Admin Acetaminophen 650 MG Q6 PRN 03/10 0840 AC (Tylenol) Acetaminophen 1,000 MG Q6P PRN 03/10 0400 AC (Ofirmev) Azithromycin 500 MG DAILY 03/10 0900 CAN (Zithromax) Sodium Chloride 250 ML (Normal Saline 0.9%) Cefazolin Sodium 1,000 MG Q8H 03/10 0500 AC 03/10 (Kefzol-Ancef Inj) 0637 Heparin Sodium 5,000 UNIT Q8 03/10 0600 AC 03/10 (Porcine) 0637 Insulin Aspart 0 TIDAC 03/10 0800 AC 03/10 (NovoLOG) 0835 Insulin Detemir 40 UNITS BID 03/10 0915 AC 03/10 (Levemir) 0953 Insulin Detemir 70 UNITS BID 03/10 0900 CAN (Levemir) 03/10 0901 Lisinopril 10 MG DAILY 03/10 0900 AC (Prinivil) Oxycodone/ 1 TAB Q6P PRN 03/10 0900 AC Acetaminophen (Percocet)
[2018-03-10 14:46] VITALS: BP 170/96
--- NOTE | 2018-03-10 17:27 | Patient Discharge Instructions ---
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 Please return to emergency if symptoms worsen. Diet Continue normal diet: No Recommended Diet: Heart Healthy Activity Full Activity/No Limits: No Activity Self Limited: Yes Acute Coronary Syndrome Inclusion Criteria At DC or during hospital stay patient has or had the following: ACS DIAGNOSIS No Discharge Core Measures Meds if any: Prescribed or Continued at Discharge Meds if any: NOT Prescribed or Continued at Discharge Congestive Heart Failure Inclusion Criteria At DC or during hospital stay patient has or had the following: CHF DIAGNOSIS Yes Discharge Core Measures Meds if any: Prescribed or Continued at Discharge Meds if any: NOT Prescribed or Continued at Discharge Cerebrovascular accident Inclusion Criteria At DC or during hospital stay patient has or had the following: CVA/TIA Diagnosis No Discharge Core Measures Meds if any: Prescribed or Continued at Discharge Meds if any: NOT Prescribed or Continued at Discharge Venous thromboembolism Inclusion Criteria VTE Diagnosis No VTE Type NONE VTE Confirmed by (Test) NONE Discharge Core Measures - Per Current guidelines, there needs to be overlap - treatment for the first 5 days of Warfarin therapy. - If discharged on Warfarin prior to 5 days of - overlap therapy, the patient will need to be - assessed for post discharge needs including - *Post discharge parental anticoagulation - *Warfarin and/or parental anticoagulation education - *Follow up date to check INR post discharge At least 5 days overlap therapy as Inpatient No Meds if any: Prescribed or Continued at Discharge Note: Overlap Therapy is Warfarin and Anticoagulant Meds if any: NOT Prescribed or Continued at Discharge
--- NOTE | 2018-03-10 17:33 | Cons- Cardiology ---
General Information and HPI Consulting Request Date of Consult: 03/10/18 Requested By: Grazyna BEDOLLA,Verenice Reason for Consult: Worsening shortness of breath and lower extremity edema. Source of Information: patient, old records Exam Limitations: no limitations History of Present Illness: Mr. Gio Myles is a 48-year-old male with a history of long- standing tobacco use, morbid obesity, obesity hypoventilation syndrome, untreated obstructive sleep apnea, diabetes mellitus, obstructive and restrictive lung disease, previous multi lobar pneumonia, nephrolithiasis, varicose veins, chronic venous insufficiency, status post vein stripping, previous cellulitis, and medical noncompliance who presented to the ED with complaints of worsening shortness of breath and edema that began approximately 4 days ago and for which he saw his primary care physician (Bello Chaves MD) on Tuesday (03/08/2018) and was started on furosemide 40 mg twice daily, but who while working yesterday began to feel very poorly with chills, nausea/vomiting that prompted the ED visit. Allergies/Medications Allergies: Coded Allergies: NO KNOWN ALLERGIES (02/12/16) Home Med List: Furosemide 40 MG TABLET 1 TAB PO BID DIURETIC (Reported) Glipizide (Glipizide ER) 10 MG TAB.ER.24 1 TAB PO DAILY DM (Reported) Insulin NPL/Insulin Lispro (Humalog Mix 75-25 Vial) 100 UNIT/ML (75-25) VIAL 70 UNIT SC BID DM (Reported) Lisinopril (Zestril) 10 MG TABLET 1 TAB PO DAILY HTN Oxycodone HCl/Acetaminophen (Oxycodone-Acetaminophen 10-325) 10 MG-325 MG TABLET 1 TAB PO AD PRN PAIN (Reported) Potassium Chloride 20 MEQ TAB.ER.PRT 1 TAB PO BID SUPPLEMENT (Reported) Current Medications: Current Medications Sig/Sarabjit Start time Last Medication Dose Route Stop Time Status Admin Acetaminophen 650 MG Q6 PRN 03/10 0840 AC PO Acetaminophen 650 MG Q6 03/10 0600 DC 03/10 PO 0637 Acetaminophen 1,000 MG Q6P PRN 03/10 0400 AC IV Acetaminophen 0 .STK-MED ONE 03/10 0134 DC IV Acetaminophen 1,000 MG ONCE ONE 03/10 0115 DC 03/10 N/A 1 UNIT IV 03/10 0129 0130 Azithromycin 500 MG DAILY 03/10 0900 CAN Sodium Chloride 250 ML IV Azithromycin 500 MG ONCE ONE 03/10 0115 DC 03/10 Sodium Chloride 250 ML IV 03/10 0214 0130 Cefazolin Sodium 1,000 MG Q8H 03/10 0500 AC 03/10 IV 1145 Ceftriaxone Sodium 0 .STK-MED ONE 03/10 0134 DC .ROUTE Ceftriaxone Sodium 1,000 MG ONCE ONE 03/10 0100 DC 03/10 IV 03/10 0101 0130 Furosemide 0 .STK-MED ONE 03/10 0134 DC IV Furosemide 40 MG ONCE ONE 03/10 0100 DC 03/10 IV PUSH 03/10 0101 0130 Heparin Sodium 5,000 UNIT Q8 03/10 0600 AC 03/10 (Porcine) SC 1528 Insulin Aspart 0 TIDAC 03/10 0800 AC 03/10 SC 1140 Insulin Detemir 40 UNITS BID 03/10 0915 AC 03/10 SC 0953 Insulin Detemir 70 UNITS BID 03/10 0900 CAN SC 03/10 0901 Lisinopril 10 MG DAILY 03/10 0900 AC 03/10 PO 1131 Magnesium Oxide 400 MG DAILY 03/10 0900 DC PO 03/10 0901 Magnesium Oxide 400 MG BID 03/10 0530 DC 03/10 PO 03/10 2101 0835 Oxycodone/ 1 TAB Q6P PRN 03/10 0900 AC Acetaminophen PO Patient Medication 1 ED ONE ONE 03/10 1545 DC Teaching ED 03/10 1546 Sodium Chloride 1,000 ML BOLUS ONE 03/09 2300 DC 03/09 IV 03/09 2359 2314 Review of Systems Review of Systems: A 14 point system review was obtained and was noncontributory, other than as above. Past History Travel History Traveled to [place] past 21 day No Medical History Neurological: NONE EENT: TONSILS REMOVED - PEDIATR Cardiovascular: hypertension Respiratory: asthma, bronchitis, pneumonia Gastrointestinal: diverticulitis Hepatic: NONE Renal: nephrolithiasis Musculoskeletal: FRACTURES (FINGERS) Psychiatric: NONE Endocrine: diabetes Blood Disorders: NONE Cancer(s): NONE Other Medical Hx: Edema Surgical History Surgical History: non-contributory Family History Relations & Conditions If Any: FATHER FH: diabetes mellitus MOTHER Psychosocial History Services at Home: None Smoking Status: Current Everyday Smoker Exam & Diagnostic Data Vital Signs and I&O Vital Signs Date Time Temp Pulse Resp B/P B/P Pulse O2 O2 Flow FiO2 Mean Ox Delivery Rate 03/10 1446 98.3 96 22 170/96 92 Nasal 2.0L Cannula 03/10 1131 128/74 03/10 0858 95 Nasal 2.0L Cannula 03/10 0723 98.8 97 20 126/64 94 Nasal Cannula 03/10 0351 99.0 101 20 128/70 94 Nasal 2.0L Cannula 03/10 0231 98.7 110 24 114/76 92 Nasal 2.0L Cannula 03/09 2316 93 Room Air 03/09 2232 101.2 122 22 191/126 98 Room Air Intake & Output 03/10 1600 03/10 0800 03/10 0000 03/09 1600 03/09 0800 03/09 0000 Intake Total 781 853 0498 Output Total 900 300 Balance -480 -180 1000 Intake, IV 20 1000 Intake, Oral 400 120 Output, Urine 900 300 Patient 336 lb 337 lb Weight Weight Bed scale Measurement Method Physical Exam: Well-developed, morbidly obese middle-aged male in no acute distress with nasal oxygen in place. Vital signs: See above. HEENT: Normocephalic, atraumatic, EOMI, moist mucous membranes. Neck: No JVD, no bruits. Lungs: Decreased breath sounds bilaterally. Heart: S1, S2 with no murmur, gallop, or rub appreciated. PMI not well felt. Abdomen: Soft, nontender, positive bowel sounds. Extremities: Hyperpigmented bilaterally with 2+ edema. Labs/[place] Results: Laboratory Tests 03/10 03/10 03/10 0805 0510 0510 Chemistry Sodium (137 - 145 mmol/L) 138 Potassium (3.5 - 5.1 mmol/L) 4.1 Chloride (98 - 107 mmol/L) 94 L Carbon Dioxide (22 - 30 mmol/L) 31 H Anion Gap (5 - 16) 13 BUN (9 - 20 mg/dL) 22 H Creatinine (0.7 - 1.2 mg/dL) 1.1 Estimated GFR (>60 ml/min) > 60 BUN/Creatinine Ratio (7 - 25 %) 20.0 Lactic Acid (0.7 - 2.1 mmol/L) 1.4 2.6 H Hematology CBC w Diff MAN DIFF ORDERED WBC (4.8 - 10.8 /CUMM) 15.7 H RBC (4.70 - 6.10 /CUMM) 4.93 Hgb (14.0 - 18.0 G/DL) 14.4 Hct (42 - 52 %) 43.0 MCV (80.0 - 94.0 FL) 87.3 MCH (27.0 - 31.0 PG) 29.2 MCHC (33.0 - 37.0 G/DL) 33.5 RDW (11.5 - 14.5 %) 14.5 Plt Count (130 - 400 /CUMM) 189 MPV (7.4 - 10.4 FL) 7.7 Gran % (42.2 - 75.2 %) 85.8 H Lymphocytes % (20.5 - 51.1 %) 8.3 L Monocytes % (1.7 - 9.3 %) 5.3 Eosinophils % (0 - 5 %) 0.5 Basophils % (0.0 - 2.0 %) 0.1 Absolute Granulocytes (1.4 - 6.5 /CUMM) 13.5 H Segmented Neutrophils (42.2 - 75.2 %) 78 H Band Neutrophils (0.0 - 5.0 %) 1 Absolute Lymphocytes (1.2 - 3.4 /CUMM) 1.3 Lymphocytes (20.5 - 51.1 %) 13 L Monocytes (1.7 - 9.3 %) 6 Absolute Monocytes (0.10 - 0.60 /CUMM) 0.8 H Eosinophils (0 - 5.0 %) 2 Absolute Eosinophils (0.0 - 0.7 /CUMM) 0.1 Absolute Basophils (0.0 - 0.2 /CUMM) 0 Platelet Estimate (ADEQUATE) ADEQUATE Polychromasia 1+ Poikilocytosis 1+ Stomatocytes 1+ Other Body Source Fld Total RBCs Counted (%) 100 03/10 03/09 0330 1641 Chemistry Sodium (137 - 145 mmol/L) 140 Potassium (3.5 - 5.1 mmol/L) 4.1 Chloride (98 - 107 mmol/L) 94 L Carbon Dioxide (22 - 30 mmol/L) 29 Anion Gap (5 - 16) 17 H BUN (9 - 20 mg/dL) 21 H Creatinine (0.7 - 1.2 mg/dL) 1.0 Estimated GFR (>60 ml/min) > 60 BUN/Creatinine Ratio (7 - 25 %) 21.0 Glucose (65 - 99 mg/dL) 330 H Hemoglobin A1c (4.2 - 5.8 %) 9.4 H Lactic Acid (0.7 - 2.1 mmol/L) 3.1 H Calcium (8.4 - 10.2 mg/dL) 9.4 Phosphorus (2.5 - 4.5 mg/dL) 3.2 Magnesium (1.6 - 2.3 mg/dL) 1.2 L Total Bilirubin (0.2 - 1.3 mg/dL) 1.5 H Direct Bilirubin (< 0.4 mg/dL) 0.4 AST (17 - 59 U/L) 17 ALT (21 - 72 U/L) 31 Alkaline Phosphatase (< 127 U/L) 71 Troponin I (<0.11 ng/ml) 0.02 [id number] Pept (<125 pg/mL) 146 H Total Protein (6.3 - 8.2 g/dL) 7.5 Albumin (3.5 - 5.0 g/dL) 4.3 Amylase (30 - 110 U/L) 39 Lipase (23 - 300 U/L) 131 TSH (0.270 - 4.200 uIU/mL) 1.600 Free T4 (0.64 - 1.79 ng/dL) 1.23 Coagulation D-Dimer High Sensitivty (0 - 243 ng/ml) 253 H Hematology CBC w Diff NO MAN DIFF REQ WBC (4.8 - 10.8 /CUMM) 15.8 H RBC (4.70 - 6.10 /CUMM) 5.09 Hgb (14.0 - 18.0 G/DL) 14.8 Hct (42 - 52 %) 44.3 MCV (80.0 - 94.0 FL) 87.1 MCH (27.0 - 31.0 PG) 29.2 MCHC (33.0 - 37.0 G/DL) 33.5 RDW (11.5 - 14.5 %) 14.3 Plt Count (130 - 400 /CUMM) 236 MPV (7.4 - 10.4 FL) 7.1 L Gran % (42.2 - 75.2 %) 90.3 H Lymphocytes % (20.5 - 51.1 %) 5.8 L Monocytes % (1.7 - 9.3 %) 2.4 Eosinophils % (0 - 5 %) 1.5 Basophils % (0.0 - 2.0 %) 0 Absolute Granulocytes (1.4 - 6.5 /CUMM) 14.3 H Absolute Lymphocytes (1.2 - 3.4 /CUMM) 0.9 L Absolute Monocytes (0.10 - 0.60 /CUMM) 0.4 Absolute Eosinophils (0.0 - 0.7 /CUMM) 0.2 Absolute Basophils (0.0 - 0.2 /CUMM) 0 Urines Urine Color (YEL,AMB,STR) YEL Urine Clarity (CLEAR) HAZY H Urine pH (5.0 - 8.0) 6.0 Ur Specific [place] (1.001 - 1.035) 1.010 Urine Protein (NEG,<30 MG/DL) 30 H Urine Ketones (NEG) NEG Urine Nitrite (NEG) NEG Urine Bilirubin (NEG) NEG Urine Urobilinogen (0.1 - 1.0 EU/dl) 0.2 Ur Leukocyte Esterase (NEG) SMALL H Ur Microscopic SEDIMENT EXAMINED Urine RBC (0 - 5 /HPF) 5-10 H Urine WBC (0 - 2 /HPF) 10-15 H Ur Epithelial Cells (NONE,FEW) RARE Urine Crystals RARE UR AC Urine Bacteria (NEG/NONE) RARE H Urine Hemoglobin (NEG) SMALL H Urine Glucose (N MG/DL) 100 H Diagnostic Data EKG Results 03/10/2018: Sinus tachycardia, right bundle branch block. Slower rate since last tracing performed earlier today. CXR Results 03/09/2018: Mild diffuse interstitial prominence, which could reflect mild interstitial edema. No focal consolidation identified. Other Results Chest CTA 03/10/2018: 1. Limited assessment due to suboptimal bolus timing. While no main pulmonary artery embolus is seen, assessment of the remainder of the vasculature is inadequate, and emboli at these levels cannot be excluded. Further assessment may be performed with a nuclear medicine ventilation perfusion scan, or with reattempted CT angiogram. 2. Prominent main pulmonary artery, which may reflect pulmonary hypertension. Left lower extremity ultrasound 03/10/2018: 1. Edema/cellulitis subcutaneous tissues tissues. 2. No definite evidence of organized/focal fluid collection or abscess formation. Assessment/Plan Assessment/Plan [id number] w/ hx of long-standing tobacco use, morbid obesity, obesity hypoventilation syndrome, untreated CHEMA, DM, COPD, restrictive lung disease, previous multi lobar pneumonia, nephrolithiasis, varicose veins, chronic venous insufficiency, s/p vein stripping, previous cellulitis, and medical noncompliance who presented to the ED w/ c/o worsening SOB & edema that began ~4 days ago & for which he saw his PCP on 03/08/2018 & was started on furosemide 40 mg twice daily, but who while working yesterday began to feel very poorly w/ chills that prompted the ED visit where he was found to be febrile w/ an elevated WBC count w/ L shift, & edematous w/ suspected vascular congestion on his presenting CXR. He also had previously documented stage I diastolic dysfunction on echocardiography from 02/11/2016. His NT-PRO BNP, however was not significantly elevated and his chest CTA from today did not suggest pulmonary edema. Clinically, however, he appears volume overloaded and has felt improved after diuretic therapy. Also suspect sepsis from skin breakdown of his edematous lower extremities. Recommendations: * Continue on telemetry, follow-up troponins, follow-up ECGs. * Echocardiogram to assess left ventricular systolic/diastolic function, right ventricular function, estimated PA systolic pressure, etc. * Continue IV furosemide and reassess the need for further IV diuresis in the a.m. * Repeat CXR in AM. * Strict inputs/outputs and daily weights. * Continue outpatient DL inhibitor therapy and increase dosage as needed for blood pressure control. * Follow-up cultures, continue empiric antimicrobial therapy, etc. * Oxygen, TRC/nebs, etc. and consider pulmonary consultation. * Consider endocrine consultation for poorly controlled diabetes mellitus. Further recommendations will follow, Thank you. Consult Acknowledgment - Thank you for your consult request.
--- NOTE | 2018-03-10 19:52 | ECHOCARDIOGRAM REPORT ---
NETO MERCEDES Age: 48 : 1970 Gender: M Exam Date: 03/10/2018 10:25 Exam Location: [address] Ht (in): 72 Wt (lb): 280 BSA: 2.59 BP: 126 / 64 Ordering Physician: Zaki Ramires MD Referring Physician: Zaki Ramires MD Technologist: Sen Yen [facility] Room Number: 183-1 Indications: Shortness of breath Rhythm: Sinus Technical Quality: Poor, Technically difficult study FINDINGS Left Ventricle Normal size left ventricle. Moderate concentric left ventricular hypertrophy. No obvious regional wall motion abnormalities. Grossly normal left ventricular ejection fraction visually estimated at 55%. Abnormal relaxation filling pattern of the left ventricle for age (stage 1 diastolic dysfunction). Right Ventricle Right ventricle at upper limits of normal. Right Atrium Normal right atrial size. Left Atrium Normal left atrial size. Mitral Valve Mitral valve not well visualized, grossly normal. No mitral regurgitation. Aortic Valve Aortic valve not well visualized, grossly normal. No aortic valve stenosis or regurgitation. Tricuspid Valve Tricuspid valve not well visualized, grossly normal. Trace tricuspid regurgitation. No evidence of pulmonary hypertension. Right ventricular systolic pressure estimated to be within the normal range at 11 mmHg. Pulmonic Valve Pulmonic valve not well visualized. No pulmonic regurgitation. Pericardium No pericardial effusion. Great Vessels Mildly dilated aortic root. Mildly dilated ascending aorta. CONCLUSIONS Normal size left ventricle. Moderate concentric left ventricular hypertrophy. No obvious regional wall motion abnormalities. Grossly normal left ventricular ejection fraction visually estimated at 55%. Abnormal relaxation filling pattern of the left ventricle for age (stage 1 diastolic dysfunction). Right ventricle at upper limits of normal. Normal atrial size. Trace tricuspid regurgitation. No evidence of pulmonary hypertension. Mildly dilated aortic root. Mildly dilated ascending aorta. Ford Pena M.D. (Electronically Signed) Final Date: 10 March 2018 19:51 MEASUREMENTS (Male / Female) Normal Values 2D ECHO LV Diastolic Diameter PLAX 5.6 cm 4.2 - 5.9 / 3.9 - 5.3 cm LV Systolic Diameter PLAX 4.1 cm 2.1 - 4.0 cm LV Fractional Shortening PLAX 26.8 % 25 - 46 % LV Ejection Fraction 2D Teich 51.7 % IVS Diastolic Thickness 1.5 cm LVPW Diastolic Thickness 1.5 cm LV Relative Wall Thickness 0.5 RV Internal Dim ED PLAX 3.8 cm 1.9 - 3.8 cm LVOT Diameter 2.3 cm Aortic Root Diameter 4.1 cm LA Systolic Diameter LX 3.2 cm 3.0 - 4.0 / 2.7 - 3.8 cm LA Volume 46.0 cm 18 - 58 / 22 - 52 cm Ascending Aorta Diameter 3.6 cm DOPPLER AV Peak Velocity 128.0 cm/s AV Peak Gradient 6.6 mmHg AV Mean Velocity 89.2 cm/s AV Mean Gradient 4.0 mmHg AV Velocity Time Integral 23.8 cm LVOT Peak Velocity 79.0 cm/s LVOT Peak Gradient 2.5 mmHg LVOT Mean Velocity 50.5 cm/s LVOT Mean Gradient 1.0 mmHg LVOT Velocity Time Integral 17.5 cm LVOT Stroke Volume 72.7 cm AV Area Cont Eq vti 3.1 cm AV Area Cont Eq pk 2.6 cm MV Peak Velocity 88.2 cm/s MV Peak Gradient 3.1 mmHg MV Mean Velocity 56.2 cm/s MV Mean Gradient 1.0 mmHg Mitral E Point Velocity 61.2 cm/s Mitral A Point Velocity 74.0 cm/s Mitral E to A Ratio 0.8 MV PHT Velocity 92.3 cm/s MV Deceleration [place] 478.0 cm/s MV Pressure Half Time 57.9 ms MV Area PHT 3.8 cm MV Deceleration Time 356.0 ms TR Peak Velocity 117.0 cm/s TR Peak Gradient 5.5 mmHg Right Atrial Pressure 5.0 mmHg Pulmonary Artery Systolic Pressu 10.5 mmHg Right Ventricular Systolic Press 10.5 mmHg PV Peak Velocity 74.4 cm/s PV Peak Gradient 2.2 mmHg PV Mean Velocity 52.8 cm/s PV Mean Gradient 1.0 mmHg PV Velocity Time Integral 16.2 cm LV E' Lateral Velocity 11.7 cm/s Mitral E to LV E' Lateral Ratio 5.2 LV E' Septal Velocity 8.2 cm/s Mitral E to LV E' Septal Ratio 7.5
[2018-03-11 06:30] VITALS: BP 120/78
[2018-03-11 08:35] LABS: ABSOLUTE BASOPHIL COUNT 0 /CUMM (0.0-0.2); ABSOLUTE EOSINOPHIL COUNT 0.3 /CUMM (0.0-0.7); ABSOLUTE GRANULOCYTE CT 12.6 /CUMM (1.4-6.5); ABSOLUTE LYMPH COUNT 1.2 /CUMM (1.2-3.4); ABSOLUTE MONOCYTE COUNT 0.8 /CUMM (0.10-0.60); BASOPHIL % 0.2 % (0.0-2.0); EOSINOPHIL % 1.8 % (0-5); GRANULOCYTE % 84.6 % (42.2-75.2); HEMATOCRIT 38.4 % (42-52); MEAN CORPUSCULAR HGB 29.5 PG (27.0-31.0); MEAN CORPUSCULAR HGB CONC 33.7 G/DL (33.0-37.0); MEAN CORPUSCULAR VOLUME 87.7 FL (80.0-94.0); MEAN PLATELET VOLUME 7.8 FL (7.4-10.4); PLATELET COUNT 175 /CUMM (130-400); RBC DISTRIBUTION WIDTH 14.4 % (11.5-14.5); RED BLOOD CELL CT 4.37 /CUMM (4.70-6.10); WHITE BLOOD CELL COUNT 14.9 /CUMM (4.8-10.8)
--- NOTE | 2018-03-11 08:37 | RADIOLOGY REPORT ---
EXAMINATION: CHEST 1 VIEW CLINICAL INFORMATION: Worsening edema. COMPARISON: 03/10/2018. TECHNIQUE: An AP view of the chest is provided. FINDINGS: The cardiac silhouette is not enlarged. The mediastinal and hilar contours are unremarkable. There are neither pleural effusions nor pneumothoraces. There is bibasilar streaky opacification. The osseous structures are unremarkable. IMPRESSION: Bibasilar streaky opacification likely employee relations representative of atelectasis.
--- NOTE | 2018-03-11 08:55 | PN- Housestaff ---
[facility] Subjective Follow-up For: Sepsis secondary to possible wound infection left lower leg Possible new onset heart failure History of DM, HTN, HLD, CHEMA, COPD Complaints: no complaints Subjective: Patient seen and examined, lying in the bed with no acute distress, report some improvement in the respiratory status Vitals stable overnight Review of Systems Constitutional: Reports: no symptoms. EENTM: Reports: no symptoms. Cardiovascular: Reports: no symptoms. Respiratory: Reports: short of breath. Gastrointestinal: Reports: no symptoms. Genitourinary: Reports: no symptoms. Musculoskeletal: Reports: no symptoms. Skin: Reports: see HPI. Objective Last 24 Hrs of Vital Signs/I&O Vital Signs Date Time Temp Pulse Resp B/P B/P Pulse O2 O2 Flow FiO2 Mean Ox Delivery Rate 03/11 1442 98.9 93 22 140/90 93 Room Air 03/11 0810 128/70 03/11 0630 98.7 102 18 120/78 91 03/11 0325 95 03/11 0000 BIPAP 03/11 0000 108 96 Intake & Output 03/11 1600 03/11 0800 03/11 0000 Intake Total 430 240 120 Output Total 1100 Balance -670 240 120 Intake, IV 30 40 20 Intake, Oral 400 200 100 Output, Urine 1100 Physical Exam General Appearance: Alert, Oriented X3, Cooperative, No Acute Distress Skin: LLE clean band covering about 5mm popped blister, with no erythema or other sign of infection Skin Temp/Moisture Exam: Warm/Dry HEENT: Atraumatic, PERRLA, EOMI, Mucous Membr. moist/pink Neck: Supple, No JVD, No thryomegaly, +2 Carotid Pulse wo Bruit, No LAD Cardiovascular: Regular Rate, Normal S1, Normal S2, No Murmurs Lungs: decrease air entry B/L Bibasilar expiratory wheezing Abdomen: Normal Bowel Sounds, Soft, No Tenderness Extremities: Normal Pulses, venous stasis changes, discoloration, +2 edema Vascular: Normal Pulses, Pulses Symmetrical Current Medications: Current Medications Sig/Sarabjit Start time Last Medication Dose Route Stop Time Status Admin Acetaminophen 650 MG Q6 PRN 03/10 0840 AC PO Acetaminophen 1,000 MG Q6P PRN 03/10 0400 AC IV Cefazolin Sodium 1,000 MG Q8H 03/10 0500 AC 03/11 IV 1122 Furosemide 40 MG DAILY 03/11 1039 AC 03/11 IV 1121 Heparin Sodium 5,000 UNIT Q8 03/10 0600 AC 03/11 (Porcine) SC 1407 Insulin Aspart 0 TIDAC 03/10 0800 AC 03/11 SC 1139 Insulin Detemir 40 UNITS BID 03/10 0915 AC 03/11 SC 0735 Lisinopril 10 MG DAILY 03/10 0900 AC 03/11 PO 0810 Oxycodone/ 1 TAB Q6P PRN 03/10 0900 AC Acetaminophen PO Patient Medication 1 ED ONE ONE 03/10 1545 DC Teaching ED 03/10 1546 Potassium Chloride 20 MEQ ONCE ONE 03/11 1045 DC 03/11 PO 03/11 1046 1121 Last 24 Hrs of Lab/Hollis Results Last 24 Hrs of Labs/Mics: Laboratory Tests 03/11/18 0655: Anion Gap 12, Estimated GFR > 60, BUN/Creatinine Ratio 19.0, Phosphorus 3.2, Magnesium 1.7, Troponin I 0.02, CBC w Diff NO MAN DIFF REQ, RBC 4.37 L, MCV 87.7, MCH 29.5, MCHC 33.7, RDW 14.4, MPV 7.8, Gran % 84.6 H, Lymphocytes % 8.0 L, Monocytes % 5.4, Eosinophils % 1.8, Basophils % 0.2, Absolute Granulocytes 12.6 H, Absolute Lymphocytes 1.2, Absolute Monocytes 0.8 H, Absolute Eosinophils 0.3, Absolute Basophils 0 Assessment/Plan Assessment: 48-year-old male with above-mentioned past medical history presented in ER for sudden onset of fever, chills, sweating. Patient does not have any cough, expectoration , urinary symptoms, back pain, abdominal pain, diarrhea and he had only one episode of vomiting on the way to ER. He has a small wound on left leg which was draining since last 2 days. On examination superficial skin breakdown with possible pus discharge but no obvious surrounding cellulitis. Deeper pocket of infection could not be ruled out because of the extent of leg edema. He does not have any obvious crackles, JVD difficult to assess but chest x-ray suggestive of pulmonary vascular congestion, it could be secondary to his pulmonary hypertension or he may have new onset heart failure, his blood pressure was remarkably elevated on arrival. He responded to IV Lasix, with symptoms and blood pressure. Even though proBNP is low, patient is obese and it may have low predictive value. We will get cardiology to rule out any new onset heart failure. Patient has history of nephrolithiasis, currently no evidence of CVA tenderness, UA unremarkable and no urinary symptoms but if patient persistent to spike fever consider CT abdomen for nephrolithiasis or pyelonephritis. #CHEMA on nocturnal Cpap #Venous stasis of B/L LE #!?Possible new onset heart failure #History of DM, HTN, HLD, CHEMA, COPD - Continue telemetry monitoring for today - Continuous telemetry monitoring - troponin and EKG -ve x2 - Echo: Normal size left ventricle. Moderate concentric left ventricular hypertrophy. No obvious regional wall motion abnormalities. Grossly normal left ventricular ejection fraction visually estimated at 55%. Abnormal relaxation filling pattern of the left ventricle for age (stage 1 diastolic dysfunction). Right ventricle at upper limits of normal. Normal atrial size. Trace tricuspid regurgitation. No evidence of pulmonary hypertension. Mildly dilated aortic root. Mildly dilated ascending aorta. - to see the patient today, f/u his recommendations - Overnight CPAP -Blood Cx. -ve so far -Consider discontinue antibiotic or switch to PO antibiotic at am if continue to improve as there is no signs of cellulitis on examination -Will start daily Lasix, 40mg IV, switch to PO tomorrow -BEP tomorrow - TRC, sliding scale insulin, continue oral antihypertensives Problem List: 1. Venous stasis dermatitis 2. CHEMA on CPAP Pain Ratin Pain Location: NONE Pain Goal: Remain pain free Pain Plan: - Tomorrow's Labs & Rationales: CBC, BEP DVT/Prophylaxis: mechanical, pharmacological [facility] 1656: Attending MD Review Statement Attending Statement Attending MD Statement: examined this patient, discuss w/resident/PA/ELECTRIC MOTOR REPAIRING SUPERVISOR, agreed w/resident/PA/ELECTRIC MOTOR REPAIRING SUPERVISOR, discussed with nursing Attending Assessment/Plan: 48-year-old male with above-mentioned past medical history presented for sudden onset of fever, chills, sweating, lower extremity swelling and shortness of breath. No acute events overnight. Patient comfortably resting in bed this AM with no complaints 1. Shortness of breath - CHEMA on CPAP - Possible volume overload 2. B/l lower extremity venous stasis changes 3. Leucocytosis #History of DM, HTN, HLD, CHEMA, COPD Plan Continue with IV Lasix IV Antibiotics for now - can be dc'd tomorrow -leucocytosis is resolving Continue with Insulin Detemir - Target RBS of 140 -180 DVT prophylaxis with Heparin SQ
[2018-03-11 14:42] VITALS: BP 140/90
[2018-03-11 23:00] VITALS: BP 130/78
[2018-03-12 07:00] VITALS: BP 124/80
[2018-03-12 07:50] LABS: ABSOLUTE BASOPHIL COUNT 0 /CUMM (0.0-0.2); ABSOLUTE EOSINOPHIL COUNT 0.5 /CUMM (0.0-0.7); ABSOLUTE GRANULOCYTE CT 5.7 /CUMM (1.4-6.5); ABSOLUTE MONOCYTE COUNT 0.8 /CUMM (0.10-0.60); BASOPHIL % 0.4 % (0.0-2.0); EOSINOPHIL % 6.1 % (0-5); GRANULOCYTE % 70.9 % (42.2-75.2); HEMATOCRIT 37.6 % (42-52); MEAN CORPUSCULAR HGB 29.6 PG (27.0-31.0); MEAN CORPUSCULAR HGB CONC 33.9 G/DL (33.0-37.0); MEAN CORPUSCULAR VOLUME 87.3 FL (80.0-94.0); MEAN PLATELET VOLUME 7.9 FL (7.4-10.4); PLATELET COUNT 180 /CUMM (130-400); RBC DISTRIBUTION WIDTH 14.4 % (11.5-14.5); RED BLOOD CELL CT 4.31 /CUMM (4.70-6.10)
[2018-03-12 07:58] VITALS: BP 130/72
--- NOTE | 2018-03-12 08:40 | PN- Housestaff ---
Fina BEDOLLA,Jorge 03/12/18 0840: Subjective Follow-up For: CHF le edema Tele-Events Since Last Visit: sinus rhythm HR 90s no events Subjective: no complaints other than persistent exertional dyspnea Review of Systems Constitutional: Reports: see HPI. Objective Last 24 Hrs of Vital Signs/I&O Vital Signs Date Time Temp Pulse Resp B/P B/P Pulse O2 O2 Flow FiO2 Mean Ox Delivery Rate 03/12 0758 130/72 03/12 0700 98.3 107 22 124/80 97 03/12 0000 93 Room Air Room Air 03/11 2300 98.6 94 20 130/78 94 Intake & Output 03/12 1600 03/12 0800 03/12 0000 Intake Total 270 120 Output Total 850 550 Balance -580 -430 Intake, IV 20 20 Intake, Oral 250 100 Output, Urine 850 550 Patient 155.242 kg Weight Weight Bed scale Measurement Method Physical Exam General Appearance: Alert, Oriented X3, Cooperative, No Acute Distress Neck: Supple, No JVD Cardiovascular: Regular Rate, Normal S1, Normal S2, No Murmurs Lungs: diminished bibasilar Abdomen: Normal Bowel Sounds, Soft, No Tenderness, No Masses Extremities: No Clubbing, No Cyanosis, Normal Pulses, 2+ pitting lower extremity edema with chronic venous stasis changes Current Medications: Current Medications Sig/Sarabjit Start time Last Medication Dose Route Stop Time Status Admin Acetaminophen 650 MG Q6 PRN 03/10 0840 DCD PO Acetaminophen 1,000 MG Q6P PRN 03/10 0400 DCD IV Cefazolin Sodium 1,000 MG Q8H 03/10 0500 DC 03/12 IV 0523 Furosemide 40 MG DAILY 03/11 1039 DCD 03/12 IV 0758 Heparin Sodium 5,000 UNIT Q8 03/10 0600 DCD 03/12 (Porcine) SC 0523 Insulin Aspart 0 TIDAC 03/10 0800 DCD 03/12 SC 1157 Insulin Detemir 40 UNITS BID 03/10 0915 DCD 03/12 SC 0757 Lisinopril 10 MG DAILY 03/10 0900 DCD 03/12 PO 0758 Oxycodone/ 1 TAB Q6P PRN 03/10 0900 DCD Acetaminophen PO Last 24 Hrs of Lab/Hollis Results Last 24 Hrs of Labs/Mics: Laboratory Tests 03/12/18 0655: Anion Gap 11, Estimated GFR > 60, BUN/Creatinine Ratio 24.0, CBC w Diff NO MAN DIFF REQ, RBC 4.31 L, MCV 87.3, MCH 29.6, MCHC 33.9, RDW 14.4, MPV 7.9, Gran % 70.9, Lymphocytes % 12.9 L, Monocytes % 9.7 H, Eosinophils % 6.1 H, Basophils % 0.4, Absolute Granulocytes 5.7, Absolute Lymphocytes 1.0 L, Absolute Monocytes 0.8 H, Absolute Eosinophils 0.5, Absolute Basophils 0 Assessment/Plan Assessment: 48-year-old male with HTN CHEMA noncompliant with CPAP, smoking, and DM, presents with acute onset shortness of breath and chills. Dyspnea: Pulmonary hypertension, smoking, CHEMA and probable new onset heart failure Echo shows moderate LVH and diastolic dysfunction CHEST CTA negative for main PA PE with prominent PAs suggestive of pulm HTN Nondiagnostic for subsegemental smaller pulmonary emboli Continue IV lasix, change to PO on discharge proBNP 146 LLE wound: Local wound care Follow up at wound care center Treated transiently with Ancef No antibiotics on discharge CHEMA: noncompliant with CPAP DM: Accuchecks, levemir and sliding scale insulin HTN: Continue ACEi Diabetic diet DVT ppx-lovenox Full code Problem List: 1. CHEMA on CPAP 2. Pulmonary HTN 3. CHF (congestive heart failure) 4. Diabetes 5. Hypertension Pain Ratin Pain Location: n/a Pain Goal: Pain 4 or less Pain Plan: prn Tomorrow's Labs & Rationales: none, [facility] 1618: Attending MD Review Statement Attending Statement Attending MD Statement: examined this patient, discuss w/resident/PA/MACHINE OVERHAULER, agreed w/resident/PA/MACHINE OVERHAULER, discussed with family Attending Assessment/Plan: Mr. Vu is a 48-year-old male with above-mentioned past medical history presented for sudden onset of fever, chills, sweating, lower extremity swelling and shortness of breath. No acute events overnight. Patient comfortably resting in bed this AM with no specific complaints 1. Shortness of breath - CHEMA on CPAP - Possible volume overload 2. B/l lower extremity venous stasis changes 3. Leucocytosis #History of DM, HTN, HLD, CHEMA, COPD Plan DISContinue antibiotics Patient doing better this morning, will discharge home on oral Lasix which he started taking in the past 1 week Patient's leukocytosis resolved, no evidence of infection. Lower extremity most likely venous stasis changes
--- NOTE | 2018-03-14 12:55 | Discharge Summary ---
See Addendum Visit Information Visit Dates Admission Date: 03/10/18 Discharge Date: 03/12/18 Hospital Course Course Attending Physician: Verenice Geronimo MD Primary Care Physician: Bello Chaves MD Hospital Course: 48 yo M with pmh of DM, CHEMA not compliant on BiPAP, morbid obesity, hypertension , COPD, chronic venous insufficiency status post vein stripping, previous multiple cellulitis and bilateral lower extremity, presented to the emergency department with bilateral leg swelling, shortness of breath, fever (temperature not recorded). About a week ago, he was suffering from bronchitis and took antibiotics for it, name not known. The patient had left lower extremity wound with chronic venous stasis which improved with diuretics. He also has a significant edema, chronic. Finally, he was discharged without antibiotics with the diagnosis of venous stasis and statis ulcer. There was a suspicion of new onset CHF due to his clinical presentation, bilateral lower extremity edema, congested breath sounds, and improvement after IV diuretic therapy. Echocardiogram showed moderate LVH and diastolic dysfunction. EF55%. Cardiology was consulted who suggested him to follow up as an out patient. On discharge, he is to continue Lasix 40 mg PO twice daily, as before. Allergies: Coded Allergies: NO KNOWN ALLERGIES (02/12/16) Significant Procedures: Echo: FINDINGS Left Ventricle Normal size left ventricle. Moderate concentric left ventricular hypertrophy. No obvious regional wall motion abnormalities. Grossly normal left ventricular ejection fraction visually estimated at 55%. Abnormal relaxation filling pattern of the left ventricle for age (stage 1 diastolic dysfunction). Right Ventricle Right ventricle at upper limits of normal. Right Atrium Normal right atrial size. Left Atrium Normal left atrial size. Mitral Valve Mitral valve not well visualized, grossly normal. No mitral regurgitation. Aortic Valve Aortic valve not well visualized, grossly normal. No aortic valve stenosis or regurgitation. Tricuspid Valve Tricuspid valve not well visualized, grossly normal. Trace tricuspid regurgitation. No evidence of pulmonary hypertension. Right ventricular systolic pressure estimated to be within the normal range at 11 mmHg. Pulmonic Valve Pulmonic valve not well visualized. No pulmonic regurgitation. Pericardium No pericardial effusion. Great Vessels Mildly dilated aortic root. Mildly dilated ascending aorta. CONCLUSIONS Normal size left ventricle. Moderate concentric left ventricular hypertrophy. No obvious regional wall motion abnormalities. Grossly normal left ventricular ejection fraction visually estimated at 55%. Abnormal relaxation filling pattern of the left ventricle for age (stage 1 diastolic dysfunction). Right ventricle at upper limits of normal. Normal atrial size. Trace tricuspid regurgitation. No evidence of pulmonary hypertension. Mildly dilated aortic root. Mildly dilated ascending aorta. Ford Pena M.D. (Electronically Signed) Final Date: 10 March 2018 19:51 DICTATED BY: Ford Pena MD DATE/TIME DICTATED:03/10/181951 MICROBIOLOGY LAB TECHNICIAN:GENEVIEVE DATE/TIME TRANSCRIBED:03/10/181951 CTA: Negative for PE Disposition Summary Disposition Principal Diagnosis: sepsis, 2/2 leg wound; new onset CHF; CHEMA on BiPAP non-compliance Additional Diagnosis: COPD; pulm HTN; morbid obesity Discharge Disposition: home or self care Discharge Instructions General Discharge Information Code Status: Full Code Patient's Diet: Diabetic diet Patient's Activity: As tolerated Follow-Up Instructions/Appts: Please follow up with your bark peeler, light equipment operator, PCP after discharge. Please return to emergency if symptoms worsen. Medications at Discharge Discharge Medications: Continue taking these medications: Lisinopril (Zestril) 10 MG TABLET 1 Tablet ORAL DAILY Days = 30 Comments: LAST GIVEN 03/12/18 @ 0930AM Glipizide (Glipizide ER) 10 MG TAB.ER.24 1 Tablet ORAL DAILY Qty = 90 Insulin NPL/Insulin Lispro (Humalog Mix 75-25 Vial) 100 UNIT/ML (75-25) VIAL 70 Unit Inject into fatty tissue TWICE DAILY Qty = 50 Comments: Last Taken:03/12/18 GIVEN LEVIMIR Time:0900 Furosemide (Furosemide) 40 MG TABLET 1 Tablet ORAL TWICE DAILY Qty = 180 Comments: Last Taken:03/12/18 GIVEN IV Time:1000 Potassium Chloride (Potassium Chloride) 20 MEQ TAB.ER.PRT 1 Tablet ORAL TWICE DAILY Qty = 180 Comments: Last Taken:03/11/18 Time:1000 Oxycodone HCl/Acetaminophen (Oxycodone-Acetaminophen 10-325) 10 MG-325 MG TABLET 1 Tablet ORAL As Directed as needed for PAIN Qty = 120 Copies To: Bello Chaves MD; Ford Pena MD Attending MD Review Statement Documenting Attending: Verenice Geronimo MD Other Findings: Discharging physician Dr Juan Manuel Walls MD.
== END 2018-03-12 12:54 | DRG 871 ==
LOC: ERH 22:26 → 1NO 03-10 01:18 → ERHI 03-10 01:18 → ENRESERV 03-10 02:17 → 1NO 03-10 03:49 → ENPENDDIS 03-12 11:34 → 1NO 03-12 12:54
PROVIDERS: Pediatrics; Student in an Organized Health Care Education/Training Program
PROC: 5A09357 Assistance with Respiratory Ventilation, Less than 24 Consecutive Hours, Continuous Positive Airway Pressure (ICD-10-PCS; principal; 2018-03-11)
DX: A41.9 Sepsis, unspecified organism (principal); I50.31 Acute diastolic (congestive) heart failure; E87.2 Acidosis; E11.51 Type 2 diabetes mellitus with diabetic peripheral angiopathy without gangrene; E11.649 Type 2 diabetes mellitus with hypoglycemia without coma; L97.929 Non-pressure chronic ulcer of unspecified part of left lower leg with unspecified severity; I11.0 Hypertensive heart disease with heart failure; R60.0 Localized edema; E66.01 Morbid (severe) obesity due to excess calories; E83.42 Hypomagnesemia; Z68.39 Body mass index [BMI] 39.0-39.9, adult; G47.33 Obstructive sleep apnea (adult) (pediatric); Z91.14 Patient's other noncompliance with medication regimen; F17.210 Nicotine dependence, cigarettes, uncomplicated; Z79.4 Long term (current) use of insulin; N20.0 Calculus of kidney; E78.5 Hyperlipidemia, unspecified; Z90.49 Acquired absence of other specified parts of digestive tract; I50.9 Heart failure, unspecified
CPT/HCPCS: 1NP; 36592; 71045; 76881; 81001; 82436; 87040; 87086; 87449; 87450; 87804; 87804-59; 93005; 93010; 93306; 99291; J0131; J0690; J0696; J1644; J1940